=== PATIENT | female | born 1980 | race Caucasian/White ===

== ENCOUNTER 2020-12-22 23:19 | Inpatient (IN) | payer OTHER ==
[2020-12-22] MEDS ORDERED: Sodium Chloride 0.9% 1000 ML 1,000 ML IV STA (23:45)
[2020-12-22] MEDS ORDERED: Zithromax 500 MG/ 250 ML NaCl Premix 500 MG/250 ML IVPB IV STA (23:45)
--- NOTE | 2020-12-22 23:49 | ERPHSYRPT ---
- History of Present Illness Time Seen by Provider: 12/22/20 23:55 Exam Limitations: no limitations Physician History: Is a 40-year-old white female who tested positive for Covid 4 days ago she pr esents with extreme shortness of breath chest pain dyspnea on exertion and room air O2 sat of 88% she has had some nausea and vomiting and feels dehydrated as well. Timing/Duration: day(s) (4) Cough Quality/Degree: dry cough Possible Cause: no prior episodes Modifying Factors: Improves With: activity, coughing, exertion Associated Symptoms: fever, chills, chest pain/soreness, cough, dizziness - Review of Systems Constitutional: No Fever, No Chills Eyes: No Symptoms Ears, Nose, & Throat: No Symptoms Respiratory: Cough, Dyspnea Cardiac: Chest Pain, No Edema, No Syncope Abdominal/Gastrointestinal: Nausea, Vomiting, No Abdominal Pain, No Diarrhea Genitourinary Symptoms: No Dysuria Musculoskeletal: No Back Pain, No Neck Pain Skin: No Rash Neurological: No Dizziness, No Focal Weakness, No Sensory Changes Psychological: No Symptoms Endocrine: No Symptoms All Other Systems: Reviewed and Negative - Nursing Vital Signs Nursing Vital Signs: Initial Vital Signs Temperature 99.9 F 12/22/20 23:48 Pulse Rate 127 H 12/22/20 23:48 Respiratory Rate 26 H 12/22/20 23:48 Blood Pressure 153/96 12/22/20 23:48 O2 Sat by Pulse Oximetry 94 L 12/22/20 23:48 Pain Scale Pain Intensity 5 - Physical Exam General Appearance: moderate distress, alert Eye Exam: PERRL/EOMI, eyes nml inspection Ears, Nose, Throat Exam: normal ENT inspection, TMs normal, pharynx normal, moist mucous membranes Neck Exam: normal inspection, non-tender, supple, full range of motion Respiratory Exam: respiratory distress, diminished breath sounds, crackles/rales, rhonchi, wheezing Cardiovascular Exam: regular rate/rhythm, normal heart sounds Gastrointestinal/Abdomen Exam: soft, No tenderness Back Exam: normal inspection, No CVA tenderness, No vertebral tenderness Extremity Exam: normal inspection, normal range of motion Neurologic Exam: alert, oriented x 3, cooperative, normal mood/affect, sensation nml, No motor deficits Skin Exam: normal color, warm, dry, No rash Lymphatic Exam: No adenopathy - Course Nursing assessment & vital signs reviewed: Yes EKG Interpreted by Me: RATE ([id number]), Sinus Tach, NORMAL AXIS, NORMAL INTERVALS, NORMAL QRS - Radiology Exams Chest X-ray Interpretation: Interpreted by me, Other (Diffuse bilateral opacities) Ordered Tests: Active Orders 24 hr Category Date Time Status [employer] STAT Care 12/22/20 23:46 Active EKG-ER Only STAT Care 12/22/20 23:45 Active Oxygen-ED Only Nasal Cannula 2 lpm Care 12/22/20 23:45 Active Pulse Oximetry (ED) STAT Care 12/22/20 23:45 Active CHEST 1 VIEW (PORTABLE) Stat Exams 12/22/20 23:46 Taken CBC W DIFF Stat Lab 12/22/20 00:30 Completed CMP Stat Lab 12/22/20 00:30 Received D-DIMER QUANTITATIVE Stat Lab 12/22/20 00:30 Completed Lactic Acid Stat Lab 12/22/20 23:45 Completed MAGNESIUM Stat Lab 12/22/20 00:30 Received NT PRO BNP Stat Lab 12/22/20 00:30 Received PROTIME WITH INR Stat Lab 12/22/20 00:30 Completed TROPONIN Q3H Lab 12/22/20 00:30 Received TROPONIN Q3H Lab 12/23/20 02:46 Ordered TROPONIN Q3H Lab 12/23/20 05:46 Ordered TROPONIN Q3H Lab 12/23/20 08:46 Ordered TROPONIN Q3H Lab 12/23/20 11:46 Ordered UA W/RFX UR CULTURE Stat Lab 12/22/20 23:46 Ordered Medication Summary Discontinued Medications Generic Name Dose Route Start Last Admin Trade Name Freq PRN Reason Stop Dose Admin Sodium Chloride 1,000 mls @ 999 mls/hr 12/22/20 23:45 12/23/20 00:44 Sodium Chloride 0.9% 1000 Ml IV 12/23/20 00:45 999 mls/hr .Q1H1M STA Administration Azithromycin 500 mg in 250 mls @ 250 mls/hr 12/22/20 23:45 12/23/20 00:43 Zithromax 500 Mg/ 250 Ml Nacl Premix IV 12/23/20 00:44 250 ml/hr STAT STA 250 mls/hr Administration Azithromycin Confirm 12/23/20 00:39 Zithromax 500 Mg/ 250 Ml Nacl Premix Administered 12/23/20 00:40 Dose 500 mg in 250 mls @ ud IV .STK-MED ONE Sodium Chloride Confirm 12/23/20 00:39 Sodium Chloride 0.9% 1000 Ml Administered 12/23/20 00:40 Dose 1,000 mls @ ud .ROUTE .[facility] Lab/Rad Data: Laboratory Result Diagrams 12/22/20 00:30 Laboratory Results 12/23/20 12/22/20 12/22/20 Range/Units 00:20 00:30 00:30 WBC 5.2 (4.0-10.5) K/mm3 RBC 4.25 (4.1-5.4) M/mm3 Hgb 12.5 (12.0-16.0) gm/dl Hct 40.0 (35-47) % MCV 94.1 (78-100) fl MCH 29.4 (26-32) pg MCHC 31.3 L (32-36) g/dl RDW 14.0 (11.5-14.0) % Plt Count 229 (150-450) K/mm3 MPV 9.5 (7.5-11.0) fl Gran % 84.8 H (36.0-66.0) % Eos # (Auto) 0.01 (0-0.5) Absolute Lymphs (auto) 0.57 L (1.0-4.6) Absolute Monos (auto) 0.21 (0.0-1.3) Lymphocytes % 11.0 L (24.0-44.0) % Monocytes % 4.0 (0.0-12.0) % Eosinophils % 0.2 (0.00-5.0) % Basophils % 0.0 (0.0-0.4) % Absolute Granulocytes 4.40 (1.4-6.9) Basophils # 0 (0-0.4) PT 14.0 H (9.4-12.5) SECONDS INR 1.19 (0.8-3.0) D-Dimer 1094 H* (215-500) ng/mL Lactic Acid 0.9 (0.4-2.0) - Progress Progress: improved Air Movement: fair Blood Culture(s) Obtained: No Antibiotics given: Yes Discussed with : Glo - Departure Departure Disposition: In-patient Admission Clinical Impression: COVID-19 Condition: Fair Critical Care Time: No Referrals: BETSY HALL MD [Primary Care Provider] -
[2020-12-23 00:37] LABS: Basophil (Absolute #) 0 (0-0.4); Eosinophil % 0.2 % (0.00-5.0); Eosinophil (Absolute #) 0.01 (0-0.5); Hemoglobin 12.5 gm/dl (12.0-16.0); Lymphocyte (Absolute #) 0.57 (1.0-4.6); Mean Cell Volume 94.1 fl (78-100); Mean Corpuscular Hemoglobin 29.4 pg (26-32); Mean Corpuscular Hgb Concent. 31.3 g/dl (32-36); Mean Platelet Volume 9.5 fl (7.5-11.0); Monocyte (Absolute #) 0.21 (0.0-1.3); Neutrophil % 84.8 % (36.0-66.0); Platelet Count 229 K/mm3 (150-450); Red Blood Count 4.25 M/mm3 (4.1-5.4); White Blood Count 5.2 K/mm3 (4.0-10.5)
[2020-12-23] MEDS ORDERED: Zithromax 500 MG/ 250 ML NaCl Premix 500 MG/250 ML IVPB IV ONE (00:39)
[2020-12-23] MEDS ORDERED: Sodium Chloride 0.9% 1000 ML 1,000 ML ONE (00:39)
[2020-12-23 00:45] LABS: INR 1.19 (0.8-3.0)
[2020-12-23 00:58] LABS: ALBUMIN 4.1 g/dL (3.5-5.0); ALKALINE PHOSPHATASE 67 U/L (38-126); ANION GAP 15.6 MEQ/L (5-15); BLOOD UREA NITROGEN 9 mg/dL (7-17); CHLORIDE 100 mmol/L (98-107); Calcium 8.4 mg/dL (8.4-10.2); Carbon Dioxide 26 mmol/L (22-30); Creatinine 1 0.67 mg/dL (0.52-1.04); EST GLOMERULAR FILTRATION RATE > 60.0 ML/MIN; Glucose 124 mg/dL (74-106); MAGNESIUM 1.9 mg/dL (1.6-2.3); NT PRO BNP 34.3 pg/mL (0-450); SGOT/AST 77 U/L (14-36); SGPT/ALT 72 U/L (0-35); SODIUM 137 mmol/L (137-145); Total Protein 7.3 g/dL (6.3-8.2)
[2020-12-23 02:03] LABS: Appearance SLIGHTLY CLOUDY (CLEAR); Bacteria RARE /HPF (NEGATIVE); Bilirubin NEGATIVE (NEGATIVE); Blood NEGATIVE Ery/ul (0-5); Epithelial Cells RARE /HPF (FEW); Glucose NEGATIVE (NEGATIVE); Ketones SMALL (NEGATIVE); Leukocyte Esterase NEGATIVE (NEGATIVE); Mucus SLIGHT /HPF (NEGATIVE); Nitrite NEGATIVE (NEGATIVE); Protein,Urine Dip 100 (Negative); Specific Gravity 1.024 (1.005-1.025); Urobilinogen NEGATIVE mg/dL (0-1)
[2020-12-23] MEDS ORDERED: VENTOLIN COMMON CANISTER IH PRN (02:47)
[2020-12-23] MEDS: TYLENOL 325 MG PO PRN ×4 (04:21→22:45)
[2020-12-23] MEDS: Sodium Chloride 0.9% 1000 ML 1,000 ML IV SCH ×2 (04:21→14:26)
[2020-12-23 05:15] LABS: Absolute Neutrophil Ct (ANC) 4.39 (1.4-6.9); Basophil (Absolute #) 0 (0-0.4); Eosinophil (Absolute #) 0 (0-0.5); Hematocrit 40.9 % (35-47); Hemoglobin 12.5 gm/dl (12.0-16.0); Lymphocyte (Absolute #) 0.77 (1.0-4.6); Lymphocytes % 14.5 % (24.0-44.0); Mean Cell Volume 97.6 fl (78-100); Mean Corpuscular Hemoglobin 29.8 pg (26-32); Mean Corpuscular Hgb Concent. 30.6 g/dl (32-36); Mean Platelet Volume 9.8 fl (7.5-11.0); Monocyte (Absolute #) 0.16 (0.0-1.3); Neutrophil % 82.5 % (36.0-66.0); Platelet Count 203 K/mm3 (150-450); Red Blood Count 4.19 M/mm3 (4.1-5.4); Red Cell Distribution Width 14.2 % (11.5-14.0); White Blood Count 5.3 K/mm3 (4.0-10.5)
[2020-12-23] MEDS: VENTOLIN COMMON CANISTER IH SCH ×4 (07:00→19:54)
[2020-12-23 07:41] LABS: A-aADO2 256; ABG HEMOGLOBIN 11.3; ABG POTASSIUM 3.6 (3.5-5.1); ABG SITE RIGHT RADIAL; ALLEN TEST OK? YES; ARTERIAL BLD GAS O2 SATURATION 96.5 % (95-100); ARTERIAL BLOOD GAS FIO2 50 %; ARTERIAL BLOOD GAS PCO2 32 mmHg (35-45); ARTERIAL BLOOD GAS PO2 61 mmHg (75-100); ARTERIAL BLOOD GAS pH 7.45 (7.35-7.45); CARBOXYHEMOGLOBIN 1.6 % THgb (0.0-6.9); HCO3- 22.2 (22-28); HGB O2 SAT 94.1 g/dF (94-100); Methhemoglobin 0.9 % (1.4-1.5)
--- NOTE | 2020-12-23 08:12 | PCM.HP ---
History of Present Illness - Chief Complaint Chief Complaint: nausea shortness of breath, headache, Positive COVID 19 3 days ago History of Present Illness: is a 40 year old female.who tested positive for Covid 4 days ago she presents with extreme shortness of breath chest pain dyspnea on exertion and room air O2 sat of 88% she has had some nausea and vomiting and feels dehydrated as well. Timing/Duration: day(s) (4) Cough Quality/Degree: dry cough Possible Cause: no prior episodes Modifying Factors: Improves With: activity, coughing, exertion Associated Symptoms: fever, chills, chest pain/soreness, cough, dizziness - Review of Systems Constitutional: Lethargy, No Fever, No Chills Eyes: No Symptoms Ears, Nose, & Throat: No Symptoms Respiratory: Cough, Orthopnea, Short Of Breath Cardiac: No Chest Pain, No Edema, No Syncope Abdominal/Gastrointestinal: Nausea, No Abdominal Pain, No Vomiting, No Diarrhea Genitourinary Symptoms: No Dysuria Musculoskeletal: No Back Pain, No Neck Pain Skin: No Rash Neurological: No Dizziness, No Focal Weakness, No Sensory Changes Psychological: No Symptoms Endocrine: No Symptoms Hematologic/Lymphatic: No Symptoms Immunological/Allergic: No Symptoms Medications & Allergies Home Medications: Home Medication List No Reportable Medications [No Reported Medications] 12/23/20 [History Confirmed 12/23/20] Allergies/Adverse Reactions: Allergies Allergy/AdvReac Type Severity Reaction Status Date / Time No Known Drug Allergies Allergy Verified 12/23/20 02:42 - Past Medical History Past Medical History: No - Female History Are you now?: No - Past Surgical History Past Surgical History: Yes Neuro Surgical History: No Pertinent History Cardiac History: No Pertinent History Respiratory Surgery: No Pertinent History GI Surgical History: No Pertinent History Genitourinary Surgical Hx: No Pertinent History Musculskeletal Surgical Hx: No Pertinent History Female Surgical History: Section - Social History Smoking Status: Never smoker Exposure to second hand smoke: No Alcohol: None Drug Use: none - Physical Exam Vital Signs: Vital Signs - 24 hr Temp Pulse Resp BP Pulse Ox 12/23/20 07:54 98.8 F 112 H 24 141/80 90 L 12/23/20 07:35 20 12/23/20 07:06 120 H 20 94 L 12/23/20 07:00 118 H 18 89 L 12/23/20 06:08 99.2 F 12/23/20 05:30 101 F 12/23/20 05:05 100.5 F 124 H 19 96 12/23/20 04:00 99.1 F 128 H 20 100 12/23/20 02:46 99.1 F 120 H 20 132/78 90 L 12/23/20 02:36 119 H 25 H 90 L 12/23/20 01:58 122 H 20 127/84 93 L 12/23/20 01:11 122 H 18 132/87 93 L 12/23/20 00:19 121 H 22 93 L 12/22/20 23:59 94 L 12/22/20 23:48 99.9 F 127 H 26 H 153/96 94 L General Appearance: no apparent distress, alert Neurologic Exam: alert, oriented x 3, cooperative, normal mood/affect, nml cerebellar function, nml station & gait, sensation nml, No motor deficits Eye Exam: PERRL/EOMI, eyes nml inspection Ears, Nose, Throat Exam: normal ENT inspection, TMs normal, pharynx normal, moist mucous membranes Neck Exam: normal inspection, non-tender, supple, full range of motion Respiratory Exam: respiratory distress, diminished breath sounds Cardiovascular Exam: regular rate/rhythm, normal heart sounds, normal peripheral pulses Gastrointestinal/Abdomen Exam: soft, normal bowel sounds, No tenderness, No mass Back Exam: normal inspection, normal range of motion, No CVA tenderness, No vertebral tenderness Extremity Exam: normal inspection, normal range of motion, pelvis stable Skin Exam: normal color, warm, dry, No rash Lymphatic Exam: No adenopathy Results - Labs Lab/Micro Results: Lab Results-Last 24 Hours 12/22/20 12/22/20 12/22/20 Range/Units 00:30 00:30 00:30 WBC 5.2 (4.0-10.5) K/mm3 RBC 4.25 (4.1-5.4) M/mm3 Hgb 12.5 (12.0-16.0) gm/dl Hct 40.0 (35-47) % MCV 94.1 (78-100) fl MCH 29.4 (26-32) pg MCHC 31.3 L (32-36) g/dl RDW 14.0 (11.5-14.0) % Plt Count 229 (150-450) K/mm3 MPV 9.5 (7.5-11.0) fl Gran % 84.8 H (36.0-66.0) % Eos # (Auto) 0.01 (0-0.5) Absolute Lymphs (auto) 0.57 L (1.0-4.6) Absolute Monos (auto) 0.21 (0.0-1.3) Lymphocytes % 11.0 L (24.0-44.0) % Monocytes % 4.0 (0.0-12.0) % Eosinophils % 0.2 (0.00-5.0) % Basophils % 0.0 (0.0-0.4) % Absolute Granulocytes 4.40 (1.4-6.9) Basophils # 0 (0-0.4) PT 14.0 H (9.4-12.5) SECONDS INR 1.19 (0.8-3.0) D-Dimer 1094 H* (215-500) ng/mL Puncture Site pCO2 (35-45) mmHg pO2 (75-100) mmHg Base Excess (-2.0-2.0) O2 Saturation (94-100) g/dF ABG pH (7.35-7.45) ABG HCO3 (22-28) ABG O2 Sat (Measured) (95-100) % Renan Test A-a Gradient a/A Ratio Hemoglobin Carboxyhemoglobin (0.0-6.9) % THgb Methemoglobin (1.4-1.5) % Temperature C POC O2 Flow Rate % Sodium 137 (137-145) mmol/L Potassium 4.0 (3.5-5.1) mmol/L Chloride 100 (98-107) mmol/L Carbon Dioxide 26 (22-30) mmol/L Anion Gap 15.6 H (5-15) MEQ/L BUN 9 (7-17) mg/dL Creatinine 0.67 (0.52-1.04) mg/dL Estimated GFR > 60.0 ML/MIN Glucose 124 H (74-106) mg/dL Lactic Acid (0.4-2.0) Calcium 8.4 (8.4-10.2) mg/dL Magnesium 1.9 (1.6-2.3) mg/dL Total Bilirubin 0.50 (0.2-1.3) mg/dL AST 77 H (14-36) U/L ALT 72 H (0-35) U/L Alkaline Phosphatase 67 (38-126) U/L Troponin I (0.000-0.034) ng/mL NT-Pro-B Natriuret Pep 34.3 (0-450) pg/mL Serum Total Protein 7.3 (6.3-8.2) g/dL Albumin 4.1 (3.5-5.0) g/dL Urine Color (YELLOW) Urine Appearance (CLEAR) Urine pH (5-6) Ur Specific [place] (1.005-1.025) Urine Protein (Negative) Urine Ketones (NEGATIVE) Urine Blood (0-5) Rick/ul Urine Nitrite (NEGATIVE) Urine Bilirubin (NEGATIVE) Urine Urobilinogen (0-1) mg/dL Ur Leukocyte Esterase (NEGATIVE) Urine WBC (Auto) (0-5) /HPF Urine RBC (Auto) (0-2) /HPF U Epithel Cells (Auto) (FEW) /HPF Urine Bacteria (Auto) (NEGATIVE) /HPF Urine Mucus (Auto) (NEGATIVE) /HPF Urine Culture Reflexed (NO) Urine Glucose (NEGATIVE) mg/dL 12/22/20 12/23/20 12/23/20 Range/Units 00:30 00:20 01:25 WBC (4.0-10.5) K/mm3 RBC (4.1-5.4) M/mm3 Hgb (12.0-16.0) gm/dl Hct (35-47) % MCV (78-100) fl MCH (26-32) pg MCHC (32-36) g/dl RDW (11.5-14.0) % Plt Count (150-450) K/mm3 MPV (7.5-11.0) fl Gran % (36.0-66.0) % Eos # (Auto) (0-0.5) Absolute Lymphs (auto) (1.0-4.6) Absolute Monos (auto) (0.0-1.3) Lymphocytes % (24.0-44.0) % Monocytes % (0.0-12.0) % Eosinophils % (0.00-5.0) % Basophils % (0.0-0.4) % Absolute Granulocytes (1.4-6.9) Basophils # (0-0.4) PT (9.4-12.5) SECONDS INR (0.8-3.0) D-Dimer (215-500) ng/mL Puncture Site pCO2 (35-45) mmHg pO2 (75-100) mmHg Base Excess (-2.0-2.0) O2 Saturation (94-100) g/dF ABG pH (7.35-7.45) ABG HCO3 (22-28) ABG O2 Sat (Measured) (95-100) % Renan Test A-a Gradient a/A Ratio Hemoglobin Carboxyhemoglobin (0.0-6.9) % THgb Methemoglobin (1.4-1.5) % Temperature C POC O2 Flow Rate % Sodium (137-145) mmol/L Potassium (3.5-5.1) mmol/L Chloride (98-107) mmol/L Carbon Dioxide (22-30) mmol/L Anion Gap (5-15) MEQ/L BUN (7-17) mg/dL Creatinine (0.52-1.04) mg/dL Estimated GFR ML/MIN Glucose (74-106) mg/dL Lactic Acid 0.9 (0.4-2.0) Calcium (8.4-10.2) mg/dL Magnesium (1.6-2.3) mg/dL Total Bilirubin (0.2-1.3) mg/dL AST (14-36) U/L ALT (0-35) U/L Alkaline Phosphatase (38-126) U/L Troponin I < 0.012 (0.000-0.034) ng/mL NT-Pro-B Natriuret Pep (0-450) pg/mL Serum Total Protein (6.3-8.2) g/dL Albumin (3.5-5.0) g/dL Urine Color LINA (YELLOW) Urine Appearance SLIGHTLY CLOUDY (CLEAR) Urine pH 5.0 (5-6) Ur Specific [place] 1.024 (1.005-1.025) Urine Protein 100 (Negative) Urine Ketones SMALL (NEGATIVE) Urine Blood NEGATIVE (0-5) Rick/ul Urine Nitrite NEGATIVE (NEGATIVE) Urine Bilirubin NEGATIVE (NEGATIVE) Urine Urobilinogen NEGATIVE (0-1) mg/dL Ur Leukocyte Esterase NEGATIVE (NEGATIVE) Urine WBC (Auto) 6-10 (0-5) /HPF Urine RBC (Auto) 6-10 (0-2) /HPF U Epithel Cells (Auto) RARE (FEW) /HPF Urine Bacteria (Auto) RARE (NEGATIVE) /HPF Urine Mucus (Auto) SLIGHT (NEGATIVE) /HPF Urine Culture Reflexed NO (NO) Urine Glucose NEGATIVE (NEGATIVE) mg/dL 12/23/20 12/23/20 12/23/20 Range/Units 04:42 04:55 07:30 WBC 5.3 (4.0-10.5) K/mm3 RBC 4.19 (4.1-5.4) M/mm3 Hgb 12.5 (12.0-16.0) gm/dl Hct 40.9 (35-47) % MCV 97.6 (78-100) fl MCH 29.8 (26-32) pg MCHC 30.6 L (32-36) g/dl RDW 14.2 H (11.5-14.0) % Plt Count 203 (150-450) K/mm3 MPV 9.8 (7.5-11.0) fl Gran % 82.5 H (36.0-66.0) % Eos # (Auto) 0 (0-0.5) Absolute Lymphs (auto) 0.77 L (1.0-4.6) Absolute Monos (auto) 0.16 (0.0-1.3) Lymphocytes % 14.5 L (24.0-44.0) % Monocytes % 3.0 (0.0-12.0) % Eosinophils % 0.0 (0.00-5.0) % Basophils % 0.0 (0.0-0.4) % Absolute Granulocytes 4.39 (1.4-6.9) Basophils # 0 (0-0.4) PT (9.4-12.5) SECONDS INR (0.8-3.0) D-Dimer (215-500) ng/mL Puncture Site RIGHT RADIAL pCO2 32 L (35-45) mmHg pO2 61 L (75-100) mmHg Base Excess -1.0 (-2.0-2.0) O2 Saturation 94.1 (94-100) g/dF ABG pH 7.45 (7.35-7.45) ABG HCO3 22.2 (22-28) ABG O2 Sat (Measured) 96.5 (95-100) % Renan Test YES A-a Gradient 256 a/A Ratio 0.19 Hemoglobin 11.3 Carboxyhemoglobin 1.6 (0.0-6.9) % THgb Methemoglobin 0.9 L (1.4-1.5) % Temperature 37.0 C POC O2 Flow Rate 50 % Sodium (137-145) mmol/L Potassium 3.6 (3.5-5.1) mmol/L Chloride (98-107) mmol/L Carbon Dioxide (22-30) mmol/L Anion Gap (5-15) MEQ/L BUN (7-17) mg/dL Creatinine (0.52-1.04) mg/dL Estimated GFR ML/MIN Glucose (74-106) mg/dL Lactic Acid 1.3 (0.4-2.0) Calcium (8.4-10.2) mg/dL Magnesium (1.6-2.3) mg/dL Total Bilirubin (0.2-1.3) mg/dL AST (14-36) U/L ALT (0-35) U/L Alkaline Phosphatase (38-126) U/L Troponin I (0.000-0.034) ng/mL NT-Pro-B Natriuret Pep (0-450) pg/mL Serum Total Protein (6.3-8.2) g/dL Albumin (3.5-5.0) g/dL Urine Color (YELLOW) Urine Appearance (CLEAR) Urine pH (5-6) Ur Specific [place] (1.005-1.025) Urine Protein (Negative) Urine Ketones (NEGATIVE) Urine Blood (0-5) Rick/ul Urine Nitrite (NEGATIVE) Urine Bilirubin (NEGATIVE) Urine Urobilinogen (0-1) mg/dL Ur Leukocyte Esterase (NEGATIVE) Urine WBC (Auto) (0-5) /HPF Urine RBC (Auto) (0-2) /HPF U Epithel Cells (Auto) (FEW) /HPF Urine Bacteria (Auto) (NEGATIVE) /HPF Urine Mucus (Auto) (NEGATIVE) /HPF Urine Culture Reflexed (NO) Urine Glucose (NEGATIVE) mg/dL - Radiology Impressions Radiology Exams & Impressions: Radiology Procedures Category Date Time Status CHEST 1 VIEW (PORTABLE) Stat Exams 12/22/20 23:46 Taken CHEST 2 VIEWS (PA AND LAT) DAILY Exams 12/23/20 08:15 Ordered - Other Procedures and Tests Respiratory Therapy 12/23/20 02:46 Oxygen Nasal Cannula 3 lpm Respiratory Therapy Assessment DAILY 12/23/20 08:00 Respiratory Therapy Consult ROUTINE Assessment/Plan (1) Pneumonia due to COVID-19 virus Current Visit: Yes Status: Acute Assessment & Plan: Chief Complaint Diagnosis COVID Allergies Allergy/AdvReac Type Severity Reaction Status Date / Time No Known Drug Allergies Allergy Verified 12/23/20 02:42 Vital Signs (Last 24 hours) Temp Pulse Resp BP Pulse Ox 12/23/20 07:54 98.8 F 112 H 24 141/80 90 L 12/23/20 07:35 20 12/23/20 07:06 120 H 20 94 L 12/23/20 07:00 118 H 18 89 L 12/23/20 06:08 99.2 F 12/23/20 05:30 101 F 12/23/20 05:05 100.5 F 124 H 19 96 12/23/20 04:00 99.1 F 128 H 20 100 12/23/20 02:46 99.1 F 120 H 20 132/78 90 L 12/23/20 02:36 119 H 25 H 90 L 12/23/20 01:58 122 H 20 127/84 93 L 12/23/20 01:11 122 H 18 132/87 93 L 12/23/20 00:19 121 H 22 93 L 12/22/20 23:59 94 L 12/22/20 23:48 99.9 F 127 H 26 H 153/96 94 L Home Medications Medication Instructions Recorded Confirmed Last Taken Type No Reportable Medications [No 12/23/20 12/23/20 Unknown History Reported Medications] Current Medications Generic Name Dose Route Start Last Admin Trade Name Freq PRN Reason Stop Dose Admin Acetaminophen 650 mg 12/23/20 04:16 12/23/20 04:21 Tylenol 325 Mg PO 01/22/21 04:15 650 mg Q4H PRN PRN Administration PAIN AND/OR FEVER Albuterol Sulfate 4 puff 12/23/20 07:00 12/23/20 07:00 Ventolin Common Canister IH 01/22/21 06:59 4 puff QIDRT ZAK Administration Albuterol Sulfate 4 puff 12/23/20 02:47 12/23/20 02:36 Ventolin Common Canister IH 01/22/21 02:46 4 puff Q4H PRN PRN Administration SHORTNESS OF BREATH/WHEEZING Enoxaparin Sodium 40 mg 12/23/20 10:00 Enoxaparin Sodium SQ 01/22/21 09:59 DAILY ZAK Famotidine 20 mg 12/23/20 10:00 Pepcid 20 Mg Vial IV 01/22/21 09:59 Q12HT ZAK Azithromycin 500 mg in 250 mls @ 250 mls/hr 12/23/20 22:00 Zithromax 500 Mg/ 250 Ml Nacl Premix IV 01/22/21 21:59 QPM ZAK Sodium Chloride 1,000 mls @ 150 mls/hr 12/23/20 04:30 12/23/20 04:21 Sodium Chloride 0.9% 1000 Ml IV 01/22/21 04:29 150 mls/hr .Q6H40M ZAK Administration Ceftriaxone Sodium/Dextrose 1 g in 50 mls @ 100 mls/hr 12/23/20 10:00 Rocephin 1 Gm-D5w 50 Ml Bag IV 12/26/20 09:59 Q24H10 ZAK Remdesivir 100 mg/ Sodium 100 mls @ 100 mls/hr 12/24/20 08:07 Chloride IV 12/27/20 09:06 Q24H ZAK Methylprednisolone Sodium Succinate 40 mg 12/23/20 08:00 Solu-Medrol 40 Mg IV 01/22/21 07:59 Q8H ZAK Ondansetron HCl 4 mg 12/23/20 01:08 Zofran 4 Mg/2 Ml Vial IV 01/22/21 01:07 Q6H PRN PRN NAUSEA/VOMITING Discontinued Medications Generic Name Dose Route Start Last Admin Trade Name Freq PRN Reason Stop Dose Admin Sodium Chloride 1,000 mls @ 999 mls/hr 12/22/20 23:45 12/23/20 00:44 Sodium Chloride 0.9% 1000 Ml IV 12/23/20 00:45 999 mls/hr .Q1H1M STA Administration Azithromycin 500 mg in 250 mls @ 250 mls/hr 12/22/20 23:45 12/23/20 00:43 Zithromax 500 Mg/ 250 Ml Nacl Premix IV 12/23/20 00:44 250 ml/hr STAT STA 250 mls/hr Administration Azithromycin Confirm 12/23/20 00:39 Zithromax 500 Mg/ 250 Ml Nacl Premix Administered 12/23/20 00:40 Dose 500 mg in 250 mls @ ud IV .STK-MED ONE Sodium Chloride Confirm 12/23/20 00:39 Sodium Chloride 0.9% 1000 Ml Administered 12/23/20 00:40 Dose 1,000 mls @ ud .ROUTE .STK-MED ONE Intake & Output (Last 24 hours) 12/20/20 12/21/20 12/22/20 12/23/20 11:59 11:59 11:59 11:59 Output Total 400 Balance -400 Weight 96.1 kg Microbiology Results (Last 24 hours) 12/22/20 23:45 Blood Blood Culture Gram Stain - Pending 12/22/20 23:45 Blood Blood Culture - Pending 12/22/20 23:45 Blood Blood Culture Gram Stain - Pending 12/22/20 23:45 Blood Blood Culture - Pending Laboratory Results (Last 24 hours) 12/23/20 12/23/20 12/23/20 07:30 04:55 04:42 WBC 5.3 RBC 4.19 Hgb 12.5 Hct 40.9 MCV 97.6 MCH 29.8 MCHC 30.6 L RDW 14.2 H Plt Count 203 MPV 9.8 Gran % 82.5 H Eos # (Auto) 0 Absolute Lymphs (auto) 0.77 L Absolute Monos (auto) 0.16 Lymphocytes % 14.5 L Monocytes % 3.0 Eosinophils % 0.0 Basophils % 0.0 Absolute Granulocytes 4.39 Basophils # 0 PT INR D-Dimer Puncture Site RIGHT RADIAL pCO2 32 L pO2 61 L Base Excess -1.0 O2 Saturation 94.1 ABG pH 7.45 ABG HCO3 22.2 ABG O2 Sat (Measured) 96.5 Renan Test YES A-a Gradient 256 a/A Ratio 0.19 Hemoglobin 11.3 Carboxyhemoglobin 1.6 Methemoglobin 0.9 L Temperature 37.0 POC O2 Flow Rate 50 Sodium Potassium 3.6 Chloride Carbon Dioxide Anion Gap BUN Creatinine Estimated GFR Glucose Lactic Acid 1.3 Calcium Magnesium Total Bilirubin AST ALT Alkaline Phosphatase Troponin I NT-Pro-B Natriuret Pep Serum Total Protein Albumin Urine Color Urine Appearance Urine pH Ur Specific [place] Urine Protein Urine Ketones Urine Blood Urine Nitrite Urine Bilirubin Urine Urobilinogen Ur Leukocyte Esterase Urine WBC (Auto) Urine RBC (Auto) U Epithel Cells (Auto) Urine Bacteria (Auto) Urine Mucus (Auto) Urine Culture Reflexed Urine Glucose 12/23/20 12/23/20 12/22/20 01:25 00:20 00:30 WBC RBC Hgb Hct MCV MCH MCHC RDW Plt Count MPV Gran % Eos # (Auto) Absolute Lymphs (auto) Absolute Monos (auto) Lymphocytes % Monocytes % Eosinophils % Basophils % Absolute Granulocytes Basophils # PT INR D-Dimer Puncture Site pCO2 pO2 Base Excess O2 Saturation ABG pH ABG HCO3 ABG O2 Sat (Measured) Renan Test A-a Gradient a/A Ratio Hemoglobin Carboxyhemoglobin Methemoglobin Temperature POC O2 Flow Rate Sodium Potassium Chloride Carbon Dioxide Anion Gap BUN Creatinine Estimated GFR Glucose Lactic Acid 0.9 Calcium Magnesium Total Bilirubin AST ALT Alkaline Phosphatase Troponin I < 0.012 NT-Pro-B Natriuret Pep Serum Total Protein Albumin Urine Color LINA Urine Appearance SLIGHTLY CLOUDY Urine pH 5.0 Ur Specific [place] 1.024 Urine Protein 100 Urine Ketones SMALL Urine Blood NEGATIVE Urine Nitrite NEGATIVE Urine Bilirubin NEGATIVE Urine Urobilinogen NEGATIVE Ur Leukocyte Esterase NEGATIVE Urine WBC (Auto) 6-10 Urine RBC (Auto) 6-10 U Epithel Cells (Auto) RARE Urine Bacteria (Auto) RARE Urine Mucus (Auto) SLIGHT Urine Culture Reflexed NO Urine Glucose NEGATIVE 12/22/20 12/22/20 12/22/20 00:30 00:30 00:30 WBC 5.2 RBC 4.25 Hgb 12.5 Hct 40.0 MCV 94.1 MCH 29.4 MCHC 31.3 L RDW 14.0 Plt Count 229 MPV 9.5 Gran % 84.8 H Eos # (Auto) 0.01 Absolute Lymphs (auto) 0.57 L Absolute Monos (auto) 0.21 Lymphocytes % 11.0 L Monocytes % 4.0 Eosinophils % 0.2 Basophils % 0.0 Absolute Granulocytes 4.40 Basophils # 0 PT 14.0 H INR 1.19 D-Dimer 1094 H* Puncture Site pCO2 pO2 Base Excess O2 Saturation ABG pH ABG HCO3 ABG O2 Sat (Measured) Renan Test A-a Gradient a/A Ratio Hemoglobin Carboxyhemoglobin Methemoglobin Temperature POC O2 Flow Rate Sodium 137 Potassium 4.0 Chloride 100 Carbon Dioxide 26 Anion Gap 15.6 H BUN 9 Creatinine 0.67 Estimated GFR > 60.0 Glucose 124 H Lactic Acid Calcium 8.4 Magnesium 1.9 Total Bilirubin 0.50 AST 77 H ALT 72 H Alkaline Phosphatase 67 Troponin I NT-Pro-B Natriuret Pep 34.3 Serum Total Protein 7.3 Albumin 4.1 Urine Color Urine Appearance Urine pH Ur Specific [place] Urine Protein Urine Ketones Urine Blood Urine Nitrite Urine Bilirubin Urine Urobilinogen Ur Leukocyte Esterase Urine WBC (Auto) Urine RBC (Auto) U Epithel Cells (Auto) Urine Bacteria (Auto) Urine Mucus (Auto) Urine Culture Reflexed Urine Glucose Orders (Last 24 hours) Category Date Time Status Bedrest ROUTINE Activity 12/23/20 01:10 Active Admit as Inpatient ROUTINE Care 12/23/20 01:08 Active Interdisciplinary Professor STAT Care 12/22/20 23:46 Completed EKG-ER Only STAT Care 12/22/20 23:45 Completed Elevate HOB ROUTINE Care 12/23/20 01:08 Active IV Care Q6H Care 12/23/20 01:09 Active IV Care Q6H Care 12/23/20 08:00 Ordered Intake and Output Q12H Care 12/23/20 01:08 Active Isolation, Initiate & Maintain Q6H Care 12/23/20 01:08 Active Isolation, Initiate & Maintain Q6H Care 12/23/20 08:00 Ordered Oxygen-ED Only Nasal Cannula 2 lpm Care 12/22/20 23:45 Completed Pulse Oximetry (ED) STAT Care 12/22/20 23:45 Completed Sequential Compression Device Q6H Care 12/23/20 01:08 Active Telemetry q4h Care 12/23/20 01:08 Active Vital Signs Q1H Care 12/23/20 01:08 Active Weight,Daily 0600 Care 12/23/20 01:08 Active Clear Liquid Diet 12/23/20 Lunch Active CHEST 1 VIEW (PORTABLE) Routine Exams 12/23/20 08:15 Ordered CHEST 1 VIEW (PORTABLE) Stat Exams 12/22/20 23:46 Taken ABG [ARTERIAL BLOOD GASES] Stat Lab 12/23/20 07:30 Completed BLOOD CULTURE Stat Lab 12/22/20 23:45 Received BLOOD CULTURE Stat Lab 12/22/20 23:45 Received CBC W DIFF AM.LAB Lab 12/23/20 04:42 Completed CBC W DIFF Routine Lab 12/23/20 08:00 Ordered CMP Routine Lab 08/12/21 08:00 Ordered Lactic Acid AM.LAB Lab 12/23/20 04:55 Completed Lactic Acid Stat Lab 12/22/20 23:45 Completed PROCALCITONIN DAILY Lab 12/23/20 08:15 Ordered UA W/RFX UR CULTURE Stat Lab 12/23/20 01:25 Completed Acetaminophen 325 mg [Tylenol 325 mg] Med 12/23/20 04:16 Active 650 mg PO Q4H PRN PRN Albuterol Common Canister [Ventolin Common Canister* Med 12/23/20 02:47 Active ] 4 puff IH Q4H PRN PRN Albuterol Common Canister [Ventolin Common Canister* Med 12/23/20 07:00 Active ] 4 puff IH QIDRT Azithromycin 500 mg/250 ml [Zithromax 500 MG/ 250 ML Med 12/23/20 22:00 Active NaCl Premix] 500 mg in 250 ml IV QPM Azithromycin 500 mg/250 ml [Zithromax 500 MG/ 250 ML Med 12/22/20 23:45 Discontinued NaCl Premix] 500 mg in 250 ml IV STAT Azithromycin 500 mg/250 ml [Zithromax 500 MG/ 250 ML Med 12/23/20 00:39 Discontinued NaCl Premix] 500 mg in 250 ml IV UD Enoxaparin Sodium [Enoxaparin Sodium] Med 12/23/20 10:00 Ordered 40 mg SQ DAILY Famotidine 20 mg Vial [Pepcid 20 MG VIAL] Med 12/23/20 10:00 Active 20 mg IV Q12HT Methylprednisolone Sod Suc 40M [solu-MEDROL 40 MG] Med 12/23/20 08:00 Ordered 40 mg IV Q8H NaCl 0.9% 1000 ml [Sodium Chloride 0.9% 1000 ML] 1,000 Med 12/23/20 00:39 Discontinued ml .ROUTE UD NaCl 0.9% 1000 ml [Sodium Chloride 0.9% 1000 ML] 1,000 Med 12/23/20 04:30 Active ml IV 150 mls/hr NaCl 0.9% 1000 ml [Sodium Chloride 0.9% 1000 ML] 1,000 Med 12/22/20 23:45 Discontinued ml IV 999 mls/hr Ondansetron HCl 4 mg/2 ml [Zofran 4 MG/2 ML VIAL] Med 12/23/20 01:08 Active 4 mg IV Q6H PRN PRN Remdesivir 100 mg/100 ml NaCl Q24h X 4D Med 12/24/20 08:07 Ordered Remdesivir 100 mg NaCl 0.9% 100Ml [Sodium Chloride 0.9% 100 ML BAG] 100 ml IV Q24H Rocephin 1 gm IVPB Q24H Med 12/23/20 10:00 Ordered Ceftriaxone 1 GM/50 ML PREMIX* [ROCEPHIN 1 Gm-D5w 50 ml Bag] 1 g in 50 ml IV Q24H10 Oxygen Nasal Cannula 3 lpm RT 12/23/20 02:46 Active Pulse Oximetry .continuos RT 12/23/20 02:46 Active Respiratory Therapy Assessment DAILY RT 12/23/20 02:46 Active Respiratory Therapy Consult ROUTINE RT 12/23/20 01:08 Completed Respiratory Therapy Consult ROUTINE RT 12/23/20 08:00 Ordered Transfer Order Routine Transfer 12/23/20 Completed Patient Care Notes (Last 24 hours) 12/23/20 08:02 Nursing Note by Linda Dewitt dr. updated on pt's abgs and increase to high flow @ 15L and 80%. he is putting in orders for remdesivir , steroids and lovenox from home and [employer] contacted window tinter-ADRIANNE Bermudez. Initialized on 12/23/20 08:02 - END OF NOTE 12/23/20 04:14 SBAR Note by Gissell Du SITUATION I am calling about LUKE DUARTE the patient's code status is Full Code The problem I am calling about is: pt's having neck pain and headache ASSESSMENT Pt is having neck pain and headache rating at 7/10, states takes Tylenol at home to help, pt also has been having decreased intake so asked about IVF RECOMMENDATION Physician notified at [id number] New Orders received: Tylenol 650 Q4 PRN, and NS @ 150 mL/hr Vital Signs (Last 4 hours) Temp Pulse Resp BP Pulse Ox 12/23/20 04:00 99.1 F 128 H 20 100 12/23/20 02:46 99.1 F 120 H 20 132/78 90 L 12/23/20 02:36 119 H 25 H 90 L 12/23/20 01:58 122 H 20 127/84 93 L 12/23/20 01:11 122 H 18 132/87 93 L 12/23/20 00:19 121 H 22 93 L Diagnois, Code Status Date of Arrival on Unit 12/23/20 Admitted From Emergency Dept Diagnosis COVID Resucitation Status Full Code Intake and Output 12 Hours 12/22/20 12/23/20 18:59 06:59 Weight 96.1 kg Physical Assessment Mental Status Alert Patient Orientation Person,Place,Time Coma Scale Total 15 Breath Sounds [Anterior] Crackles,Wheezes Breath Sounds [Anterior/ Crackles,Wheezes Posterior Bilateral Throughout ] Cardiac Rhythm-S[facility] Sinus Tachycardia Bowel Sounds [All Quadrants] Present,Active Abdomen Description Soft,Non-Tender Urine Appearance Not Voided Skin Color Flushed Skin Temperature Warm Pain Scale (Last 12 Hours) Pain Intensity 7 Pain Intensity 5 Pain Intensity 5 Pain Intensity 5 Pain Intensity 5 Pain Intensity 5 Pain Intensity 5 Pain Intensity 5 Pain Intensity 5 Diet Order (Last 12 Hours) 12/23/20 Breakfast House Regular Diet Lab Results (Last 12 Hours) 12/23/20 12/23/20 12/22/20 Range/Units 01:25 00:20 00:30 WBC (4.0-10.5) K/mm3 RBC (4.1-5.4) M/mm3 Hgb (12.0-16.0) gm/dl Hct (35-47) % MCV (78-100) fl MCH (26-32) pg MCHC (32-36) g/dl RDW (11.5-14.0) % Plt Count (150-450) K/mm3 MPV (7.5-11.0) fl Gran % (36.0-66.0) % Eos # (Auto) (0-0.5) Absolute Lymphs (auto) (1.0-4.6) Absolute Monos (auto) (0.0-1.3) Lymphocytes % (24.0-44.0) % Monocytes % (0.0-12.0) % Eosinophils % (0.00-5.0) % Basophils % (0.0-0.4) % Absolute Granulocytes (1.4-6.9) Basophils # (0-0.4) PT (9.4-12.5) SECONDS INR (0.8-3.0) D-Dimer (215-500) ng/mL Sodium (137-145) mmol/L Potassium (3.5-5.1) mmol/L Chloride (98-107) mmol/L Carbon Dioxide (22-30) mmol/L Anion Gap (5-15) MEQ/L BUN (7-17) mg/dL Creatinine (0.52-1.04) mg/dL Estimated GFR ML/MIN Glucose (74-106) mg/dL Lactic Acid 0.9 (0.4-2.0) Calcium (8.4-10.2) mg/dL Magnesium (1.6-2.3) mg/dL Total Bilirubin (0.2-1.3) mg/dL AST (14-36) U/L ALT (0-35) U/L Alkaline Phosphatase (38-126) U/L Troponin I < 0.012 (0.000-0.034) ng/mL NT-Pro-B Natriuret Pep (0-450) pg/mL Serum Total Protein (6.3-8.2) g/dL Albumin (3.5-5.0) g/dL Urine Color LINA (YELLOW) Urine Appearance SLIGHTLY CLOUDY (CLEAR) Urine pH 5.0 (5-6) Ur Specific [place] 1.024 (1.005-1.025) Urine Protein 100 (Negative) Urine Ketones SMALL (NEGATIVE) Urine Blood NEGATIVE (0-5) Rick/ul Urine Nitrite NEGATIVE (NEGATIVE) Urine Bilirubin NEGATIVE (NEGATIVE) Urine Urobilinogen NEGATIVE (0-1) mg/dL Ur Leukocyte Esterase NEGATIVE (NEGATIVE) Urine WBC (Auto) 6-10 (0-5) /HPF Urine RBC (Auto) 6-10 (0-2) /HPF U Epithel Cells (Auto) RARE (FEW) /HPF Urine Bacteria (Auto) RARE (NEGATIVE) /HPF Urine Mucus (Auto) SLIGHT (NEGATIVE) /HPF Urine Culture Reflexed NO (NO) Urine Glucose NEGATIVE (NEGATIVE) mg/dL 12/22/20 12/22/20 12/22/20 Range/Units 00:30 00:30 00:30 WBC 5.2 (4.0-10.5) K/mm3 RBC 4.25 (4.1-5.4) M/mm3 Hgb 12.5 (12.0-16.0) gm/dl Hct 40.0 (35-47) % MCV 94.1 (78-100) fl MCH 29.4 (26-32) pg MCHC 31.3 L (32-36) g/dl RDW 14.0 (11.5-14.0) % Plt Count 229 (150-450) K/mm3 MPV 9.5 (7.5-11.0) fl Gran % 84.8 H (36.0-66.0) % Eos # (Auto) 0.01 (0-0.5) Absolute Lymphs (auto) 0.57 L (1.0-4.6) Absolute Monos (auto) 0.21 (0.0-1.3) Lymphocytes % 11.0 L (24.0-44.0) % Monocytes % 4.0 (0.0-12.0) % Eosinophils % 0.2 (0.00-5.0) % Basophils % 0.0 (0.0-0.4) % Absolute Granulocytes 4.40 (1.4-6.9) Basophils # 0 (0-0.4) PT 14.0 H (9.4-12.5) SECONDS INR 1.19 (0.8-3.0) D-Dimer 1094 H* (215-500) ng/mL Sodium 137 (137-145) mmol/L Potassium 4.0 (3.5-5.1) mmol/L Chloride 100 (98-107) mmol/L Carbon Dioxide 26 (22-30) mmol/L Anion Gap 15.6 H (5-15) MEQ/L BUN 9 (7-17) mg/dL Creatinine 0.67 (0.52-1.04) mg/dL Estimated GFR > 60.0 ML/MIN Glucose 124 H (74-106) mg/dL Lactic Acid (0.4-2.0) Calcium 8.4 (8.4-10.2) mg/dL Magnesium 1.9 (1.6-2.3) mg/dL Total Bilirubin 0.50 (0.2-1.3) mg/dL AST 77 H (14-36) U/L ALT 72 H (0-35) U/L Alkaline Phosphatase 67 (38-126) U/L Troponin I (0.000-0.034) ng/mL NT-Pro-B Natriuret Pep 34.3 (0-450) pg/mL Serum Total Protein 7.3 (6.3-8.2) g/dL Albumin 4.1 (3.5-5.0) g/dL Urine Color (YELLOW) Urine Appearance (CLEAR) Urine pH (5-6) Ur Specific [place] (1.005-1.025) Urine Protein (Negative) Urine Ketones (NEGATIVE) Urine Blood (0-5) Rick/ul Urine Nitrite (NEGATIVE) Urine Bilirubin (NEGATIVE) Urine Urobilinogen (0-1) mg/dL Ur Leukocyte Esterase (NEGATIVE) Urine WBC (Auto) (0-5) /HPF Urine RBC (Auto) (0-2) /HPF U Epithel Cells (Auto) (FEW) /HPF Urine Bacteria (Auto) (NEGATIVE) /HPF Urine Mucus (Auto) (NEGATIVE) /HPF Urine Culture Reflexed (NO) Urine Glucose (NEGATIVE) mg/dL Lactic Acid (Last 12 Hours) 12/23/20 00:20 Lactic Acid 0.9 Microbiology Results (Last 12 Hours) 12/22/20 23:45 Blood Culture Gram Stain - Pending Blood Blood Culture - Pending 12/22/20 23:45 Blood Culture Gram Stain - Pending Blood Blood Culture - Pending Orders (Last 12 Hours) Category Date Time Status Bedrest ROUTINE Activity 12/23/20 01:10 Active Admit as Inpatient ROUTINE Care 12/23/20 01:08 Active Elevate HOB ROUTINE Care 12/23/20 01:08 Active IV Care Q6H Care 12/23/20 01:09 Active Intake and Output Q12H Care 12/23/20 01:08 Active Isolation, Initiate & Maintain Q6H Care 12/23/20 01:08 Active POCT Glucose Check ACHS Care 12/23/20 01:08 Active Sequential Compression Device Q6H Care 12/23/20 01:08 Active Telemetry q4h Care 12/23/20 01:08 Active Vital Signs Q4H Care 12/23/20 01:08 Active Weight,Daily 0600 Care 12/23/20 01:08 Active House Regular Diet Diet 12/23/20 Breakfast Active CHEST 1 VIEW (PORTABLE) Stat Exams 12/22/20 23:46 Taken BLOOD CULTURE Stat Lab 12/22/20 23:45 Received BLOOD CULTURE Stat Lab 12/22/20 23:45 Received CBC W DIFF AM.LAB Lab 12/23/20 04:00 Ordered Lactic Acid AM.LAB Lab 12/23/20 04:00 Ordered Albuterol Common Canister [Ventolin Common Canister* Med 12/23/20 02:47 Ordered ] 4 puff IH Q4H PRN PRN Albuterol Common Canister [Ventolin Common Canister* Med 12/23/20 07:00 Ordered ] 4 puff IH QIDRT Azithromycin 500 mg/250 ml [Zithromax 500 MG/ 250 ML Med 12/23/20 10:00 Ordered NaCl Premix] 500 mg in 250 ml IV Q24H10 Famotidine 20 mg Vial [Pepcid 20 MG VIAL] Med 12/23/20 10:00 Ordered 20 mg IV Q12HT Ondansetron HCl 4 mg/2 ml [Zofran 4 MG/2 ML VIAL] Med 12/23/20 01:08 Ordered 4 mg IV Q6H PRN PRN Oxygen Nasal Cannula 3 lpm RT 12/23/20 02:46 Active Pulse Oximetry .continuos RT 12/23/20 02:46 Active Respiratory Therapy Assessment DAILY RT 12/23/20 02:46 Active Active Visit Medications Generic Name Dose Route Start Last Admin Trade Name Freq PRN Reason Stop Dose Admin Albuterol Sulfate 4 puff 12/23/20 07:00 Ventolin Common Canister 01/22/21 06:59 QIDRT ZAK Albuterol Sulfate 4 puff 12/23/20 02:47 12/23/20 02:36 Ventolin Common Canister 01/22/21 02:46 4 puff Q4H PRN PRN Administration SHORTNESS OF BREATH/WHEEZING Famotidine 20 mg 12/23/20 10:00 Pepcid 20 Mg Vial IV 01/22/21 09:59 Q12HT ZAK Azithromycin 500 mg in 250 mls @ 250 mls/hr 12/23/20 10:00 Zithromax 500 Mg/ 250 Ml Nacl Premix IV 01/22/21 09:59 Q24H10 ZAK Ondansetron HCl 4 mg 12/23/20 01:08 Zofran 4 Mg/2 Ml Vial IV 01/22/21 01:07 Q6H PRN PRN NAUSEA/VOMITING Home Medications Medication Instructions Recorded Confirmed Last Taken Type No Reportable Medications [No 12/23/20 12/23/20 Unknown History Reported Medications] Initialized on 12/23/20 04:14 - END OF NOTE Code(s): U07.1 - COVID-19; J12.82 - PNEUMONIA DUE TO CORONAVIRUS DISEASE
[2020-12-23] MEDS ORDERED: REMDESIVIR 200 MG in Sodium Chloride 0.9% 250 ML 250 ML IV ONE (08:13)
[2020-12-23] MEDS: solu-MEDROL 40 MG IV SCH ×2 (08:22→16:31)
[2020-12-23] MEDS: Pepcid 20 MG VIAL IV SCH ×2 (08:23→22:45)
[2020-12-23] MEDS: ROCEPHIN 1 Gm-D5w 50 ml Bag** 1 G/50 ML IVPB IV SCH (08:23)
[2020-12-23] MEDS: Zofran 4 MG/2 ML VIAL IV PRN ×2 (08:23→16:31)
[2020-12-23] MEDS: ENOXAPARIN SODIUM SQ SCH (08:23)
--- NOTE | 2020-12-23 08:58 | XRAY ---
Indication: Short of breath and hypoxia. Positive Covid 19. Comparison: March 26, 2017. Portable chest demonstrates new diffuse bilateral patchy airspace disease without consolidation/large effusion. Remaining heart and bony thorax unremarkable.
--- NOTE | 2020-12-23 08:58 | XRAY ---
Indication: Cough, short of breath, pneumonia, positive Covid 19. Comparison: One day earlier. Portable chest less inflated with grossly stable diffuse bilateral patchy airspace disease. Again no consolidation/large effusion. Remaining heart and bony thorax unremarkable.
--- NOTE | 2020-12-23 13:48 | CONS ---
CONSULT DATE: 12/23/2020 HISTORY: Nisha Ngo is a 40 year-old woman who had been admitted to [facility] after being sick for about a week. The patient reports that she was exposed to a couple of co-workers at work place who came down positive for COVID-19. Subsequently the patient also traveled to [place] however after coming back she developed complaints of shortness of breath, cough, vomiting and dehydration. She isolated herself at home in the bedroom until the symptoms progressed to the point to come to the emergency room. She was noted to have oxygen saturation of 88% on room air at rest. She has since been hospitalized and is requiring high flow oxygen to maintain saturations right around 92%. She is able to carry out a conversation. It is too soon to say if the patient is responding to treatment. She just received her first dose of loading Remdesivir along with steroids, antibiotics and other supportive care this morning. The patient reports one prior history of pneumonia. She has had no other known lung problems. PAST MEDICAL HISTORY: She again reportedly is in good health. PAST SURGICAL HISTORY: No recent surgery. PERSONAL AND SOCIAL HISTORY: She is a nonsmoker. MEDICATIONS: She takes no prescription medications. ALLERGIES: NKDA. PHYSICAL EXAMINATION: This is a middle aged woman who appears comfortable, able to carry out conversation as reported above. VITAL SIGNS: Temperature max 101F, heart rate 110, blood pressure 132/78 mmHg and saturating 92% on high flow oxygen. HEENT: Normocephalic. Oral exam unremarkable. CVS: First and second heart sounds are normal, regular, rhythmic. Mild tachycardia is noted. RESPIRATORY: Shows diminished breath sounds, crackles are heard bilaterally almost custodial up. ABDOMEN: Soft. EXTREMITIES: No significant edema is noted. LABORATORY DATA AND TESTS: Sodium 137, potassium 4.0, chloride 100, bicarb 26, BUN 9, creatinine 0.6, glucose 124. AST 77 and ALT 72. D-dimer 1094. INR 1.1. Chest x-ray shows bilateral patchy infiltrates consistent with clinical findings. ASSESSMENT: This is a 40 year old woman without significant past medical history, unvaccinated for COVID-19, who has been admitted with:1) Acute severe hypoxic respiratory failure. 2) Bilateral pneumonitis viral in etiology due to COVID-19. 3) Active COVID-19 infection. 4) Mildly abnormal liver function tests. RECOMMENDATIONS: 1) I agree with present treatment consisting of Remdesivir therapy. The patient has received loading dose today, will continue this on daily infusion basis for the next four days. 2) Continue antibiotics, steroids will taper and anticoagulation for deep vein thrombosis prophylaxis. 3) The patient needs to have cardiopulmonary monitoring at any point if she appears to be decompensating will consider transferring her to a higher level of care in [place]. At this point she appears marginal but is able to compensate fairly well. 4) Further recommendations awaiting clinical improvement. I can be reached for any clinical changes at any time. Thank you for allowing me to participate in the care of Miss Ngo.
[2020-12-23 16:50] LABS: ALBUMIN 3.7 g/dL (3.5-5.0); ALKALINE PHOSPHATASE 61 U/L (38-126); ANION GAP 17.3 MEQ/L (5-15); BLOOD UREA NITROGEN 8 mg/dL (7-17); CHLORIDE 103 mmol/L (98-107); Calcium 8.1 mg/dL (8.4-10.2); Carbon Dioxide 21 mmol/L (22-30); Creatinine 1 0.57 mg/dL (0.52-1.04); EST GLOMERULAR FILTRATION RATE > 60.0 ML/MIN; Glucose 118 mg/dL (74-106); Potassium 4.7 mmol/L (3.5-5.1); SGOT/AST 89 U/L (14-36); SGPT/ALT 73 U/L (0-35); SODIUM 136 mmol/L (137-145); Total Protein 6.6 g/dL (6.3-8.2)
[2020-12-23] MEDS ORDERED: Zithromax 500 MG/ 250 ML NaCl Premix 500 MG/250 ML IVPB IV SCH (22:00)
[2020-12-24] MEDS: solu-MEDROL 40 MG IV SCH ×2 (00:54→10:30)
[2020-12-24] MEDS: Sodium Chloride 0.9% 1000 ML 1,000 ML IV SCH (02:53)
[2020-12-24 05:22] LABS: Absolute Neutrophil Ct (ANC) 3.41 (1.4-6.9); BASOPHIL % 0.2 % (0.0-0.4); Basophil (Absolute #) 0.01 (0-0.4); Eosinophil (Absolute #) 0 (0-0.5); Hematocrit 38.3 % (35-47); Hemoglobin 11.8 gm/dl (12.0-16.0); Lymphocytes % 16.5 % (24.0-44.0); Mean Cell Volume 94.6 fl (78-100); Mean Corpuscular Hemoglobin 29.1 pg (26-32); Mean Corpuscular Hgb Concent. 30.8 g/dl (32-36); Mean Platelet Volume 9.4 fl (7.5-11.0); Monocyte (Absolute #) 0.12 (0.0-1.3); Monocytes % 2.8 % (0.0-12.0); Neutrophil % 80.5 % (36.0-66.0); Platelet Count 288 K/mm3 (150-450); Red Blood Count 4.05 M/mm3 (4.1-5.4); Red Cell Distribution Width 13.9 % (11.5-14.0); White Blood Count 4.2 K/mm3 (4.0-10.5)
[2020-12-24 05:42] LABS: ALBUMIN 3.6 g/dL (3.5-5.0); ALKALINE PHOSPHATASE 59 U/L (38-126); ANION GAP 11.9 MEQ/L (5-15); BLOOD UREA NITROGEN 12 mg/dL (7-17); CHLORIDE 103 mmol/L (98-107); Calcium 7.9 mg/dL (8.4-10.2); Carbon Dioxide 29 mmol/L (22-30); Creatinine 1 0.54 mg/dL (0.52-1.04); EST GLOMERULAR FILTRATION RATE > 60.0 ML/MIN; Glucose 176 mg/dL (74-106); Potassium 4.3 mmol/L (3.5-5.1); SGOT/AST 91 U/L (14-36); SGPT/ALT 85 U/L (0-35); SODIUM 140 mmol/L (137-145); Total Protein 6.6 g/dL (6.3-8.2)
[2020-12-24] MEDS: VENTOLIN COMMON CANISTER IH SCH ×3 (07:50→16:47)
[2020-12-24 09:22] VITALS: BP 130/68
[2020-12-24] MEDS ORDERED: REMDESIVIR 100 MG in Sodium Chloride 0.9% 100 ML BAG 100 ML IV SCH (10:00)
[2020-12-24] MEDS: Pepcid 20 MG VIAL IV SCH (10:30)
[2020-12-24] MEDS: ENOXAPARIN SODIUM SQ SCH (10:30)
[2020-12-24] MEDS: ROCEPHIN 1 Gm-D5w 50 ml Bag** 1 G/50 ML IVPB IV SCH (10:31)
[2020-12-24] MEDS ORDERED: Ativan 2 MG/1 ML VIAL IV PRN (11:25)
--- NOTE | 2020-12-24 12:20 | XRAY ---
Indication: Respiratory distress. Positive Covid 19. Multiple contiguous axial images obtained through the chest prior to and following 80 cc Isovue 370 contrast as ordered. Comparison: None Lungs demonstrates markedly diffuse bilateral mosaic airspace opacities without effusion. Tiny left lower lobe calcified granuloma. Heart not enlarged. Aorta is normal in course and caliber. No pathologic mediastinal/hilar lymphadenopathy. Bony thorax intact with minimal degenerative changes throughout the spine. Limited upper abdomen demonstrates fatty liver. Impression: 1. Diffuse bilateral mosaic airspace opacities. Commonly report imaging features of Covid 19 pneumonia are present. Other processes such as influenza pneumonia and organizing pneumonia, as can be seen with drug toxicity and connective tissue disease, can cause a similar imaging pattern. 2. Incidental fatty liver.
--- NOTE | 2020-12-24 12:33 | PCM.NOTE ---
Date and Time: 12/24/20 1229 Subjective Assessment: patient is getting worse. - Review of Systems Constitutional: Fatigue, Weakness, No Fever, No Chills Eyes: No Symptoms Ears, Nose, & Throat: No Symptoms Respiratory: Orthopnea, Short Of Breath, Wheezing, No Cough Cardiac: No Chest Pain, No Edema, No Syncope Abdominal/Gastrointestinal: No Abdominal Pain, No Nausea, No Vomiting, No Diarrhea Genitourinary Symptoms: No Dysuria Musculoskeletal: No Back Pain, No Neck Pain Skin: No Rash Neurological: No Dizziness, No Focal Weakness, No Sensory Changes Psychological: No Symptoms Endocrine: No Symptoms Hematologic/Lymphatic: No Symptoms Immunological/Allergic: No Symptoms Objective Exam General Appearance: no apparent distress, alert Neurologic Exam: alert, oriented x 3, cooperative, No motor deficits Skin Exam: normal color, warm, dry Eye Exam: PERRL, EOMI, eyes nml inspection Ears, Nose, Throat Exam: normal ENT inspection, pharynx normal, moist mucous membranes Neck Exam: normal inspection, non-tender, supple, full range of motion Respiratory Exam: diminished breath sounds, accessory muscle use, prolonged expirations, crackles/rales, rhonchi, wheezing, No respiratory distress Cardiovascular Exam: regular rate/rhythm, normal heart sounds Gastrointestinal/Abdomen Exam: soft, No tenderness, No mass Extremity Exam: normal inspection, normal range of motion Back Exam: normal inspection, normal range of motion, No CVA tenderness, No vertebral tenderness Pelvic Exam: deferred Rectal Exam: deferred OBJECTIVE DATA Vital Signs: Vital Signs - 24 hr Temp Pulse Resp BP Pulse Ox 12/24/20 11:00 108 H 18 95 12/24/20 10:00 102 H 25 H 94 L 12/24/20 09:00 102 H 25 H 95 12/24/20 08:00 97.4 F 97 H 28 H 130/68 87 L 12/24/20 07:00 98 H 12/24/20 06:07 98 H 22 90 L 12/24/20 06:00 22 12/24/20 05:02 95 H 22 95 12/24/20 04:05 67 22 12/24/20 04:00 20 12/24/20 03:00 90 20 88 L 12/24/20 02:00 88 22 90 L 12/24/20 00:47 98.8 F 88 24 124/72 95 12/23/20 23:56 24 12/23/20 23:00 98.7 F 97 H 28 H 124/65 92 L 12/23/20 22:00 28 H 12/23/20 21:46 102 H 19 90 L 12/23/20 20:57 106 H 28 H 93 L 12/23/20 20:00 98.7 F 105 H 22 144/82 91 L 12/23/20 18:51 107 H 19 94 L 12/23/20 17:46 106 H 24 92 L 12/23/20 17:44 18 12/23/20 17:00 108 H 26 H 92 L 12/23/20 16:00 98.4 F 110 H 26 H 149/85 92 L 12/23/20 15:00 107 H 20 94 L 12/23/20 14:43 107 H 20 94 L 12/23/20 14:00 107 H 21 93 L 12/23/20 13:15 93 L 12/23/20 13:00 110 H 28 H 94 L Pain Assessment - Last Documented Pain Intensity 6 Pain Scale Used 0-10 Pain Scale Intake and Output: Intake & Output 12/22/20 12/23/20 12/24/20 12/25/20 11:59 11:59 11:59 11:59 Intake Total 60 600 Output Total 800 700 Balance -740 -100 Weight 96.1 kg Lab Results: Lab Results-Last 24 Hours 12/23/20 12/23/20 12/24/20 Range/Units 04:42 05:00 04:50 WBC 4.2 (4.0-10.5) K/mm3 RBC 4.05 L (4.1-5.4) M/mm3 Hgb 11.8 L (12.0-16.0) gm/dl Hct 38.3 (35-47) % MCV 94.6 (78-100) fl MCH 29.1 (26-32) pg MCHC 30.8 L (32-36) g/dl RDW 13.9 (11.5-14.0) % Plt Count 288 D (150-450) K/mm3 MPV 9.4 (7.5-11.0) fl Gran % 80.5 H (36.0-66.0) % Eos # (Auto) 0 (0-0.5) Absolute Lymphs (auto) 0.70 L (1.0-4.6) Absolute Monos (auto) 0.12 (0.0-1.3) Lymphocytes % 16.5 L (24.0-44.0) % Monocytes % 2.8 (0.0-12.0) % Eosinophils % 0.0 (0.00-5.0) % Basophils % 0.2 (0.0-0.4) % Absolute Granulocytes 3.41 (1.4-6.9) Basophils # 0.01 (0-0.4) D-Dimer (215-500) ng/mL Sodium 136 L (137-145) mmol/L Potassium 4.7 (3.5-5.1) mmol/L Chloride 103 (98-107) mmol/L Carbon Dioxide 21 L (22-30) mmol/L Anion Gap 17.3 H (5-15) MEQ/L BUN 8 (7-17) mg/dL Creatinine 0.57 (0.52-1.04) mg/dL Estimated GFR > 60.0 ML/MIN Glucose 118 H (74-106) mg/dL Calcium 8.1 L (8.4-10.2) mg/dL Total Bilirubin 0.80 (0.2-1.3) mg/dL AST 89 H (14-36) U/L ALT 73 H (0-35) U/L Alkaline Phosphatase 61 (38-126) U/L Serum Total Protein 6.6 (6.3-8.2) g/dL Albumin 3.7 (3.5-5.0) g/dL Procalcitonin 0.149 H (0.030-0.080) ng/mL 12/24/20 12/24/20 12/24/20 Range/Units 04:50 04:50 04:50 WBC (4.0-10.5) K/mm3 RBC (4.1-5.4) M/mm3 Hgb (12.0-16.0) gm/dl Hct (35-47) % MCV (78-100) fl MCH (26-32) pg MCHC (32-36) g/dl RDW (11.5-14.0) % Plt Count (150-450) K/mm3 MPV (7.5-11.0) fl Gran % (36.0-66.0) % Eos # (Auto) (0-0.5) Absolute Lymphs (auto) (1.0-4.6) Absolute Monos (auto) (0.0-1.3) Lymphocytes % (24.0-44.0) % Monocytes % (0.0-12.0) % Eosinophils % (0.00-5.0) % Basophils % (0.0-0.4) % Absolute Granulocytes (1.4-6.9) Basophils # (0-0.4) D-Dimer 1285 H* (215-500) ng/mL Sodium 140 (137-145) mmol/L Potassium 4.3 (3.5-5.1) mmol/L Chloride 103 (98-107) mmol/L Carbon Dioxide 29 (22-30) mmol/L Anion Gap 11.9 (5-15) MEQ/L BUN 12 (7-17) mg/dL Creatinine 0.54 (0.52-1.04) mg/dL Estimated GFR > 60.0 ML/MIN Glucose 176 H (74-106) mg/dL Calcium 7.9 L (8.4-10.2) mg/dL Total Bilirubin 0.40 (0.2-1.3) mg/dL AST 91 H (14-36) U/L ALT 85 H (0-35) U/L Alkaline Phosphatase 59 (38-126) U/L Serum Total Protein 6.6 (6.3-8.2) g/dL Albumin 3.6 (3.5-5.0) g/dL Procalcitonin 0.118 H (0.030-0.080) ng/mL Radiology Exams: Radiology Procedures Category Date Time Status CHEST 1 VIEW (PORTABLE) Routine Exams 12/23/20 08:15 Completed CHEST 1 VIEW (PORTABLE) Stat Exams 12/22/20 23:46 Completed CHEST W/WO CONTRAST [CT] Urgent Exams 12/24/20 09:41 Completed Multi-Disciplinary Progress Notes: Multi-Disciplinary Progress Notes 12/24/20 10:15 Case Management Note by Anadi Sexton PATIENT STILL VERY ACUTELY ILL- WILL CONTINUE TO HOLD CASE MANAGEMENT ASSESS UNTIL CLOSER TO TIME OF DC Initialized on 12/24/20 10:15 - END OF NOTE Assessment/Plan (1) Pneumonia due to COVID-19 virus Current Visit: Yes Status: Acute Assessment & Plan: Chief Complaint Diagnosis nausea shortness of breath, headache, Positive COVID 19 3 days ago Allergies Allergy/AdvReac Type Severity Reaction Status Date / Time No Known Drug Allergies Allergy Verified 12/23/20 02:42 Vital Signs (Last 24 hours) Temp Pulse Resp BP Pulse Ox 12/24/20 11:00 108 H 18 95 12/24/20 10:00 102 H 25 H 94 L 12/24/20 09:00 102 H 25 H 95 12/24/20 08:00 97.4 F 97 H 28 H 130/68 87 L 12/24/20 07:00 98 H 12/24/20 06:07 98 H 22 90 L 12/24/20 06:00 22 12/24/20 05:02 95 H 22 95 12/24/20 04:05 67 22 12/24/20 04:00 20 12/24/20 03:00 90 20 88 L 12/24/20 02:00 88 22 90 L 12/24/20 00:47 98.8 F 88 24 124/72 95 12/23/20 23:56 24 12/23/20 23:00 98.7 F 97 H 28 H 124/65 92 L 12/23/20 22:00 28 H 12/23/20 21:46 102 H 19 90 L 12/23/20 20:57 106 H 28 H 93 L 12/23/20 20:00 98.7 F 105 H 22 144/82 91 L 12/23/20 18:51 107 H 19 94 L 12/23/20 17:46 106 H 24 92 L 12/23/20 17:44 18 12/23/20 17:00 108 H 26 H 92 L 12/23/20 16:00 98.4 F 110 H 26 H 149/85 92 L 12/23/20 15:00 107 H 20 94 L 12/23/20 14:43 107 H 20 94 L 12/23/20 14:00 107 H 21 93 L 12/23/20 13:15 93 L 12/23/20 13:00 110 H 28 H 94 L Home Medications Medication Instructions Recorded Confirmed Last Taken Type No Reportable Medications [No 12/23/20 12/23/20 Unknown History Reported Medications] Current Medications Generic Name Dose Route Start Last Admin Trade Name Edyta PRN Reason Stop Dose Admin Acetaminophen 650 mg 12/23/20 04:16 08/12/21 22:45 Tylenol 325 Mg PO 01/22/21 04:15 650 mg Q4H PRN PRN Administration PAIN AND/OR FEVER Albuterol Sulfate 4 puff 12/23/20 07:00 12/23/20 19:54 Ventolin Common Canister IH 01/22/21 06:59 4 puff QIDRT ZAK Administration Albuterol Sulfate 4 puff 12/23/20 02:47 12/23/20 02:36 Ventolin Common Canister IH 01/22/21 02:46 4 puff Q4H PRN PRN Administration SHORTNESS OF BREATH/WHEEZING Enoxaparin Sodium 40 mg 12/23/20 10:00 12/24/20 10:30 Enoxaparin Sodium SQ 01/22/21 09:59 40 mg DAILY ZAK Administration Famotidine 20 mg 12/23/20 10:00 12/24/20 10:30 Pepcid 20 Mg Vial IV 01/22/21 09:59 20 mg Q12HT ZAK Administration Azithromycin 500 mg in 250 mls @ 250 mls/hr 12/23/20 22:00 12/23/20 21:30 Zithromax 500 Mg/ 250 Ml Nacl Premix IV 01/22/21 21:59 250 mls/hr QPM ZAK Administration Sodium Chloride 1,000 mls @ 50 mls/hr 12/23/20 04:30 12/24/20 02:53 Sodium Chloride 0.9% 1000 Ml IV 01/22/21 04:29 Not Given .Q20H ZAK Ceftriaxone Sodium/Dextrose 1 g in 50 mls @ 100 mls/hr 12/23/20 10:00 12/24/20 10:31 Rocephin 1 Gm-D5w 50 Ml Bag IV 12/26/20 09:59 100 mls/hr Q24H10 ZAK Administration Remdesivir 100 mg/ Sodium 100 mls @ 100 mls/hr 12/24/20 10:00 12/24/20 11:11 Chloride IV 12/27/20 10:59 100 mls/hr Q24H ZAK Administration Lorazepam 1 mg 12/24/20 11:25 Ativan 2 Mg/1 Ml Vial IV 01/23/21 11:24 Q4H PRN PRN ANXIETY/AGITATION Methylprednisolone Sodium Succinate 40 mg 12/23/20 08:00 12/24/20 10:30 Solu-Medrol 40 Mg IV 01/22/21 07:59 40 mg Q8H ZAK Administration Ondansetron HCl 4 mg 12/23/20 01:08 12/23/20 16:31 Zofran 4 Mg/2 Ml Vial IV 01/22/21 01:07 4 mg Q6H PRN PRN Administration NAUSEA/VOMITING Discontinued Medications Generic Name Dose Route Start Last Admin Trade Name Freq PRN Reason Stop Dose Admin Sodium Chloride 1,000 mls @ 999 mls/hr 12/22/20 23:45 12/23/20 00:44 Sodium Chloride 0.9% 1000 Ml IV 12/23/20 00:45 999 mls/hr .Q1H1M STA Administration Azithromycin 500 mg in 250 mls @ 250 mls/hr 12/22/20 23:45 12/23/20 00:43 Zithromax 500 Mg/ 250 Ml Nacl Premix IV 12/23/20 00:44 250 ml/hr STAT STA 250 mls/hr Administration Azithromycin Confirm 12/23/20 00:39 Zithromax 500 Mg/ 250 Ml Nacl Premix Administered 12/23/20 00:40 Dose 500 mg in 250 mls @ ud IV .STK-MED ONE Sodium Chloride Confirm 12/23/20 00:39 Sodium Chloride 0.9% 1000 Ml Administered 12/23/20 00:40 Dose 1,000 mls @ ud .ROUTE .STK-MED ONE Remdesivir 200 mg/ Sodium 250 mls @ 125 mls/hr 12/23/20 08:13 12/23/20 09:58 Chloride IV 12/23/20 10:12 125 mls/hr ONCE ONE Administration Intake & Output (Last 24 hours) 12/22/20 12/23/20 12/24/20 12/25/20 11:59 11:59 11:59 11:59 Intake Total 60 600 Output Total 800 700 Balance -740 -100 Weight 96.1 kg Laboratory Results (Last 24 hours) 12/24/20 12/24/20 12/24/20 04:50 04:50 04:50 WBC RBC Hgb Hct MCV MCH MCHC RDW Plt Count MPV Gran % Eos # (Auto) Absolute Lymphs (auto) Absolute Monos (auto) Lymphocytes % Monocytes % Eosinophils % Basophils % Absolute Granulocytes Basophils # D-Dimer 1285 H* Sodium 140 Potassium 4.3 Chloride 103 Carbon Dioxide 29 Anion Gap 11.9 BUN 12 Creatinine 0.54 Estimated GFR > 60.0 Glucose 176 H Calcium 7.9 L Total Bilirubin 0.40 AST 91 H ALT 85 H Alkaline Phosphatase 59 Serum Total Protein 6.6 Albumin 3.6 Procalcitonin 0.118 H 12/24/20 12/23/20 12/23/20 04:50 05:00 04:42 WBC 4.2 RBC 4.05 L Hgb 11.8 L Hct 38.3 MCV 94.6 MCH 29.1 MCHC 30.8 L RDW 13.9 Plt Count 288 D MPV 9.4 Gran % 80.5 H Eos # (Auto) 0 Absolute Lymphs (auto) 0.70 L Absolute Monos (auto) 0.12 Lymphocytes % 16.5 L Monocytes % 2.8 Eosinophils % 0.0 Basophils % 0.2 Absolute Granulocytes 3.41 Basophils # 0.01 D-Dimer Sodium 136 L Potassium 4.7 Chloride 103 Carbon Dioxide 21 L Anion Gap 17.3 H BUN 8 Creatinine 0.57 Estimated GFR > 60.0 Glucose 118 H Calcium 8.1 L Total Bilirubin 0.80 AST 89 H ALT 73 H Alkaline Phosphatase 61 Serum Total Protein 6.6 Albumin 3.7 Procalcitonin 0.149 H Orders (Last 24 hours) Category Date Time Status CHEST W/WO CONTRAST [CT] Urgent Exams 12/24/20 09:41 Completed CBC W DIFF AM.LAB Lab 12/24/20 04:50 Completed CMP AM.LAB Lab 12/24/20 04:50 Completed D-DIMER QUANTITATIVE AM.LAB Lab 12/24/20 04:50 Completed PROCALCITONIN DAILY Lab 12/24/20 04:50 Completed Azithromycin 500 mg/250 ml [Zithromax 500 MG/ 250 ML Med 12/23/20 22:00 Active NaCl Premix] 500 mg in 250 ml IV QPM Lorazepam 2 mg/1 ml [Ativan 2 MG/1 ML VIAL] Med 12/24/20 11:25 Active 1 mg IV Q4H PRN PRN Remdesivir 100 mg Med 12/24/20 10:00 Active NaCl 0.9% 100Ml [Sodium Chloride 0.9% 100 ML BAG] 100 ml IV Q24H Patient Care Notes (Last 24 hours) 12/24/20 10:15 Case Management Note by Anaid Sexton PATIENT STILL VERY ACUTELY ILL- WILL CONTINUE TO HOLD CASE MANAGEMENT ASSESS UNTIL CLOSER TO TIME OF DC Initialized on 12/24/20 10:15 - END OF NOTE 12/23/20 12:32 Nursing Note by Linda Dewitt dr. at bedside rounding on pt. Initialized on 12/23/20 12:32 - END OF NOTE I talked to DR Mo Bermudez about patient worsening condition. He advised patient to be transferred to [facility], but they dont have bed so [facility] and we got bed so we will transfer patient to [facility] ICU. Hospitalist accepted patient. Code(s): U07.1 - COVID-19; J12.82 - PNEUMONIA DUE TO CORONAVIRUS DISEASE
--- NOTE | 2020-12-24 13:04 | PCM.DS ---
Discharge Summary Date of Admission: 12/23/20 01:39 Admitting Physician: BETSY HALL Consults: Consults on Case 12/23/20 08:10 Consult Pulmonology ROUTINE Primary Care Provider: BETSY HALL Allergies Allergies No Known Drug Allergies Allergy (Verified 12/23/20 02:42) Hospital Summary - Hospital Course Hospital Course: Chief Complaint Diagnosis nausea shortness of breath, headache, Positive COVID 19 3 days ago Allergies Allergy/AdvReac Type Severity Reaction Status Date / Time No Known Drug Allergies Allergy Verified 12/23/20 02:42 Vital Signs (Last 24 hours) Temp Pulse Resp BP Pulse Ox 12/24/20 11:00 108 H 18 95 12/24/20 10:00 102 H 25 H 94 L 12/24/20 09:00 102 H 25 H 95 12/24/20 08:00 97.4 F 97 H 28 H 130/68 87 L 12/24/20 07:00 98 H 12/24/20 06:07 98 H 22 90 L 12/24/20 06:00 22 12/24/20 05:02 95 H 22 95 12/24/20 04:05 67 22 12/24/20 04:00 20 12/24/20 03:00 90 20 88 L 12/24/20 02:00 88 22 90 L 12/24/20 00:47 98.8 F 88 24 124/72 95 12/23/20 23:56 24 12/23/20 23:00 98.7 F 97 H 28 H 124/65 92 L 12/23/20 22:00 28 H 12/23/20 21:46 102 H 19 90 L 12/23/20 20:57 106 H 28 H 93 L 12/23/20 20:00 98.7 F 105 H 22 144/82 91 L 12/23/20 18:51 107 H 19 94 L 12/23/20 17:46 106 H 24 92 L 12/23/20 17:44 18 12/23/20 17:00 108 H 26 H 92 L 12/23/20 16:00 98.4 F 110 H 26 H 149/85 92 L 12/23/20 15:00 107 H 20 94 L 12/23/20 14:43 107 H 20 94 L 12/23/20 14:00 107 H 21 93 L 12/23/20 13:15 93 L Home Medications Medication Instructions Recorded Confirmed Last Taken Type No Reportable Medications [No 12/23/20 12/23/20 Unknown History Reported Medications] Current Medications Generic Name Dose Route Start Last Admin Trade Name Freq PRN Reason Stop Dose Admin Acetaminophen 650 mg 12/23/20 04:16 12/23/20 22:45 Tylenol 325 Mg PO 01/22/21 04:15 650 mg Q4H PRN PRN Administration PAIN AND/OR FEVER Albuterol Sulfate 4 puff 12/23/20 07:00 12/23/20 19:54 Ventolin Common Canister IH 01/22/21 06:59 4 puff QIDRT ZAK Administration Albuterol Sulfate 4 puff 12/23/20 02:47 12/23/20 02:36 Ventolin Common Canister IH 01/22/21 02:46 4 puff Q4H PRN PRN Administration SHORTNESS OF BREATH/WHEEZING Enoxaparin Sodium 40 mg 12/23/20 10:00 12/24/20 10:30 Enoxaparin Sodium SQ 01/22/21 09:59 40 mg DAILY ZAK Administration Famotidine 20 mg 12/23/20 10:00 12/24/20 10:30 Pepcid 20 Mg Vial IV 01/22/21 09:59 20 mg Q12HT ZAK Administration Azithromycin 500 mg in 250 mls @ 250 mls/hr 12/23/20 22:00 12/23/20 21:30 Zithromax 500 Mg/ 250 Ml Nacl Premix IV 01/22/21 21:59 250 mls/hr QPM ZAK Administration Sodium Chloride 1,000 mls @ 50 mls/hr 12/23/20 04:30 12/24/20 02:53 Sodium Chloride 0.9% 1000 Ml IV 01/22/21 04:29 Not Given .Q20H ZAK Ceftriaxone Sodium/Dextrose 1 g in 50 mls @ 100 mls/hr 12/23/20 10:00 12/24/20 10:31 Rocephin 1 Gm-D5w 50 Ml Bag IV 12/26/20 09:59 100 mls/hr Q24H10 ZAK Administration Remdesivir 100 mg/ Sodium 100 mls @ 100 mls/hr 12/24/20 10:00 12/24/20 11:11 Chloride IV 12/27/20 10:59 100 mls/hr Q24H ZAK Administration Lorazepam 1 mg 12/24/20 11:25 12/24/20 12:52 Ativan 2 Mg/1 Ml Vial IV 01/23/21 11:24 1 mg Q4H PRN PRN Administration ANXIETY/AGITATION Methylprednisolone Sodium Succinate 40 mg 12/23/20 08:00 12/24/20 10:30 Solu-Medrol 40 Mg IV 01/22/21 07:59 40 mg Q8H ZAK Administration Ondansetron HCl 4 mg 12/23/20 01:08 12/23/20 16:31 Zofran 4 Mg/2 Ml Vial IV 01/22/21 01:07 4 mg Q6H PRN PRN Administration NAUSEA/VOMITING Discontinued Medications Generic Name Dose Route Start Last Admin Trade Name Freq PRN Reason Stop Dose Admin Sodium Chloride 1,000 mls @ 999 mls/hr 12/22/20 23:45 12/23/20 00:44 Sodium Chloride 0.9% 1000 Ml IV 12/23/20 00:45 999 mls/hr .Q1H1M STA Administration Azithromycin 500 mg in 250 mls @ 250 mls/hr 12/22/20 23:45 12/23/20 00:43 Zithromax 500 Mg/ 250 Ml Nacl Premix IV 12/23/20 00:44 250 ml/hr STAT STA 250 mls/hr Administration Azithromycin Confirm 12/23/20 00:39 Zithromax 500 Mg/ 250 Ml Nacl Premix Administered 12/23/20 00:40 Dose 500 mg in 250 mls @ ud IV .STK-MED ONE Sodium Chloride Confirm 12/23/20 00:39 Sodium Chloride 0.9% 1000 Ml Administered 12/23/20 00:40 Dose 1,000 mls @ ud .ROUTE .STK-MED ONE Remdesivir 200 mg/ Sodium 250 mls @ 125 mls/hr 12/23/20 08:13 12/23/20 09:58 Chloride IV 12/23/20 10:12 125 mls/hr ONCE ONE Administration Intake & Output (Last 24 hours) 12/22/20 12/23/20 12/24/20 12/25/20 11:59 11:59 11:59 11:59 Intake Total 60 600 Output Total 800 700 Balance -740 -100 Weight 96.1 kg Laboratory Results (Last 24 hours) 12/24/20 12/24/20 12/24/20 04:50 04:50 04:50 WBC RBC Hgb Hct MCV MCH MCHC RDW Plt Count MPV Gran % Eos # (Auto) Absolute Lymphs (auto) Absolute Monos (auto) Lymphocytes % Monocytes % Eosinophils % Basophils % Absolute Granulocytes Basophils # D-Dimer 1285 H* Sodium 140 Potassium 4.3 Chloride 103 Carbon Dioxide 29 Anion Gap 11.9 BUN 12 Creatinine 0.54 Estimated GFR > 60.0 Glucose 176 H Calcium 7.9 L Total Bilirubin 0.40 AST 91 H ALT 85 H Alkaline Phosphatase 59 Serum Total Protein 6.6 Albumin 3.6 Procalcitonin 0.118 H 12/24/20 12/23/20 04:50 05:00 WBC 4.2 RBC 4.05 L Hgb 11.8 L Hct 38.3 MCV 94.6 MCH 29.1 MCHC 30.8 L RDW 13.9 Plt Count 288 D MPV 9.4 Gran % 80.5 H Eos # (Auto) 0 Absolute Lymphs (auto) 0.70 L Absolute Monos (auto) 0.12 Lymphocytes % 16.5 L Monocytes % 2.8 Eosinophils % 0.0 Basophils % 0.2 Absolute Granulocytes 3.41 Basophils # 0.01 D-Dimer Sodium 136 L Potassium 4.7 Chloride 103 Carbon Dioxide 21 L Anion Gap 17.3 H BUN 8 Creatinine 0.57 Estimated GFR > 60.0 Glucose 118 H Calcium 8.1 L Total Bilirubin 0.80 AST 89 H ALT 73 H Alkaline Phosphatase 61 Serum Total Protein 6.6 Albumin 3.7 Procalcitonin Orders (Last 24 hours) Category Date Time Status CHEST W/WO CONTRAST [CT] Urgent Exams 12/24/20 09:41 Completed CBC W DIFF AM.LAB Lab 12/24/20 04:50 Completed CMP AM.LAB Lab 12/24/20 04:50 Completed D-DIMER QUANTITATIVE AM.LAB Lab 12/24/20 04:50 Completed PROCALCITONIN DAILY Lab 12/24/20 04:50 Completed Azithromycin 500 mg/250 ml [Zithromax 500 MG/ 250 ML Med 12/23/20 22:00 Active NaCl Premix] 500 mg in 250 ml IV QPM Lorazepam 2 mg/1 ml [Ativan 2 MG/1 ML VIAL] Med 12/24/20 11:25 Active 1 mg IV Q4H PRN PRN Remdesivir 100 mg Med 12/24/20 10:00 Active NaCl 0.9% 100Ml [Sodium Chloride 0.9% 100 ML BAG] 100 ml IV Q24H Patient Care Notes (Last 24 hours) 12/24/20 12:55 Nursing Note by Alice Hernandez CALL [facility]SF[facility] AT 1251 AND REQUESTED AT BED. SPOKE WITH DEIRDRE AT [phone] Initialized on 12/24/20 12:55 - END OF NOTE 12/24/20 10:15 Case Management Note by Anaid Sexton PATIENT STILL VERY ACUTELY ILL- WILL CONTINUE TO HOLD CASE MANAGEMENT ASSESS UNTIL CLOSER TO TIME OF DC Initialized on 12/24/20 10:15 - END OF NOTE - Vitals & Intake/Output Vital Signs: Vital Signs Temperature 97.4 F 12/24/20 08:00 Pulse Rate 108 H 12/24/20 11:00 Respiratory Rate 18 12/24/20 11:00 Blood Pressure 130/68 12/24/20 08:00 O2 Sat by Pulse Oximetry 95 12/24/20 11:00 Intake & Output: Intake & Output 12/22/20 12/23/20 12/24/20 12/25/20 11:59 11:59 11:59 11:59 Intake Total 60 600 Output Total 800 700 Balance -740 -100 Weight 96.1 kg - Lab Result Diagrams: 12/24/20 04:50 12/24/20 04:50 Lab Results-Last 24 Hrs: Lab Results-Last 24 Hours 12/23/20 12/24/20 12/24/20 Range/Units 05:00 04:50 04:50 WBC 4.2 (4.0-10.5) K/mm3 RBC 4.05 L (4.1-5.4) M/mm3 Hgb 11.8 L (12.0-16.0) gm/dl Hct 38.3 (35-47) % MCV 94.6 (78-100) fl MCH 29.1 (26-32) pg MCHC 30.8 L (32-36) g/dl RDW 13.9 (11.5-14.0) % Plt Count 288 D (150-450) K/mm3 MPV 9.4 (7.5-11.0) fl Gran % 80.5 H (36.0-66.0) % Eos # (Auto) 0 (0-0.5) Absolute Lymphs (auto) 0.70 L (1.0-4.6) Absolute Monos (auto) 0.12 (0.0-1.3) Lymphocytes % 16.5 L (24.0-44.0) % Monocytes % 2.8 (0.0-12.0) % Eosinophils % 0.0 (0.00-5.0) % Basophils % 0.2 (0.0-0.4) % Absolute Granulocytes 3.41 (1.4-6.9) Basophils # 0.01 (0-0.4) D-Dimer (215-500) ng/mL Sodium 136 L 140 (137-145) mmol/L Potassium 4.7 4.3 (3.5-5.1) mmol/L Chloride 103 103 (98-107) mmol/L Carbon Dioxide 21 L 29 (22-30) mmol/L Anion Gap 17.3 H 11.9 (5-15) MEQ/L BUN 8 12 (7-17) mg/dL Creatinine 0.57 0.54 (0.52-1.04) mg/dL Estimated GFR > 60.0 > 60.0 ML/MIN Glucose 118 H 176 H (74-106) mg/dL Calcium 8.1 L 7.9 L (8.4-10.2) mg/dL Total Bilirubin 0.80 0.40 (0.2-1.3) mg/dL AST 89 H 91 H (14-36) U/L ALT 73 H 85 H (0-35) U/L Alkaline Phosphatase 61 59 (38-126) U/L Serum Total Protein 6.6 6.6 (6.3-8.2) g/dL Albumin 3.7 3.6 (3.5-5.0) g/dL Procalcitonin (0.030-0.080) ng/mL 12/24/20 12/24/20 Range/Units 04:50 04:50 WBC (4.0-10.5) K/mm3 RBC (4.1-5.4) M/mm3 Hgb (12.0-16.0) gm/dl Hct (35-47) % MCV (78-100) fl MCH (26-32) pg MCHC (32-36) g/dl RDW (11.5-14.0) % Plt Count (150-450) K/mm3 MPV (7.5-11.0) fl Gran % (36.0-66.0) % Eos # (Auto) (0-0.5) Absolute Lymphs (auto) (1.0-4.6) Absolute Monos (auto) (0.0-1.3) Lymphocytes % (24.0-44.0) % Monocytes % (0.0-12.0) % Eosinophils % (0.00-5.0) % Basophils % (0.0-0.4) % Absolute Granulocytes (1.4-6.9) Basophils # (0-0.4) D-Dimer 1285 H* (215-500) ng/mL Sodium (137-145) mmol/L Potassium (3.5-5.1) mmol/L Chloride (98-107) mmol/L Carbon Dioxide (22-30) mmol/L Anion Gap (5-15) MEQ/L BUN (7-17) mg/dL Creatinine (0.52-1.04) mg/dL Estimated GFR ML/MIN Glucose (74-106) mg/dL Calcium (8.4-10.2) mg/dL Total Bilirubin (0.2-1.3) mg/dL AST (14-36) U/L ALT (0-35) U/L Alkaline Phosphatase (38-126) U/L Serum Total Protein (6.3-8.2) g/dL Albumin (3.5-5.0) g/dL Procalcitonin 0.118 H (0.030-0.080) ng/mL - Radiology Exams Ordered Rad Exams-Entire Visit: Radiology Procedures Category Date Time Status CHEST 1 VIEW (PORTABLE) Routine Exams 12/23/20 08:15 Completed CHEST 1 VIEW (PORTABLE) Stat Exams 12/22/20 23:46 Completed CHEST W/WO CONTRAST [CT] Urgent Exams 12/24/20 09:41 Completed - Procedures and Test Procedures and Tests throughout Hospitalization: Therapy Orders & Screens 12/23/20 01:08 Respiratory Therapy Consult ROUTINE Comment: Reason For Exam: 12/23/20 02:46 Oxygen Nasal Cannula 3 lpm Comment: Respiratory Therapy Assessment DAILY Comment: 12/23/20 08:00 Respiratory Therapy Consult ROUTINE Comment: Reason For Exam: Diagnosis: COVID 12/23/20 08:14 Oxygen High Flow per RT 80% Comment: Diagnosis: nausea shortness of breath, headache, Positive COVID 19 3 days ago 12/23/20 08:17 Incentive Spirometry UD Comment: Diagnosis: nausea shortness of breath, headache, Positive COVID 19 3 days ago Discharge Exam General Appearance: no apparent distress, alert Neurologic Exam: alert, oriented x 3, cooperative, normal mood/affect, nml cerebellar function, sensation nml, No motor deficits Eye Exam: PERRL, EOMI, eyes nml inspection Ears, Nose, Throat Exam: normal ENT inspection, pharynx normal, moist mucous membranes Neck Exam: normal inspection, non-tender, supple, full range of motion Respiratory Exam: normal breath sounds, respiratory distress, diminished breath sounds, accessory muscle use, crackles/rales, rhonchi, wheezing Cardiovascular Exam: regular rate/rhythm, normal heart sounds Gastrointestinal/Abdomen Exam: soft, No tenderness, No mass Pelvic Exam: deferred Rectal Exam: deferred Back Exam: normal inspection, normal range of motion, No CVA tenderness, No v ertebral tenderness Extremity Exam: normal inspection, normal range of motion Skin Exam: normal color, warm, dry Final Diagnosis/Problem List - Final Discharge Diagnosis/Problem (1) Pneumonia due to COVID-19 virus Current Visit: Yes Status: Acute Priority: High Assessment & Plan: Patient is getting transfer to [facility] Code(s): U07.1 - COVID-19; J12.82 - PNEUMONIA DUE TO CORONAVIRUS DISEASE - Discharge Discharge Date: 12/24/20 Disposition: DC TO [facility] Condition: Fair Prescriptions: No Action No Reportable Medications [No Reported Medications] Follow up with: BETSY HALL MD [Primary Care Provider] -
[2020-12-24 15:30] VITALS: PULSE 102; O2SAT 91
== END 2020-12-24 16:40 | disposition home or self-care (01) | DRG 177 ==
LOC: ED 23:19 → MED SURG 12-23 01:39
PROVIDERS: ADMIT General Practice; ATTEND General Practice
DX: U07.1 COVID-19 (principal); J12.82 Pneumonia due to coronavirus disease 2019; J96.01 Acute respiratory failure with hypoxia; R07.9 Chest pain, unspecified; R11.2 Nausea with vomiting, unspecified; R42 Dizziness and giddiness; R94.5 Abnormal results of liver function studies; R51.9 Headache, unspecified
CPT/HCPCS: 36415; 36600; 71045; 71270; 80053; 81001; 82375; 82803; 83605; 83735; 83880; 84145; 84484; 85025; 85379; 85610; 87040; 93005; 93041; 94002; 94640; 94760; 94762; 96365; 99284; J0456; J0696; J1650; J2060; J2405; J2920; A9270-GY

== ENCOUNTER 2021-04-18 10:51 | Day surgery (SDC) | payer OTHER ==
--- NOTE | 2021-04-18 09:05 | HP ---
DATE OF SURGERY: 04/18/2021 HISTORY OF PRESENT ILLNESS: The patient is a 40-year-old had some right-sided abdominal aches and pains 15 to 30 minutes after eating and some heartburn. Given her symptoms and high ejection fraction of 30%, I feel she has acute exacerbation of chronic cholecystitis, symptomatic biliary dyskinesia. PAST MEDICAL HISTORY: She had COVID in the past. She had been on Ozempic since then. PAST SURGICAL HISTORY: IUD. section. Tubal ligation. Cysts removed in the past. MEDICATIONS: Ozempic ALLERGIES: NKDA. FAMILY HISTORY: Negative in regards to this problem. SOCIAL HISTORY: No smoking or alcohol abuse. REVIEW OF SYSTEMS: Fourteen systems reviewed. No chest pain or palpitations. Other systems negative or noncontributory as above and per preadmission questionnaire. PHYSICAL EXAMINATION: GENERAL: No acute distress. HEENT: Sclerae nonicteric. NECK: No JVD. CHEST: Clear to auscultation. CVS: Regular rate and rhythm. ABDOMEN: Soft. No peritoneal signs. EXTREMITIES: No significant edema. NEURO: Alert, oriented, moving extremities symmetrically. PSYCH: Appropriate mood and affect. IMPRESSION: Acute exacervation of chronic cholecystitis, symptomatic biliary dyskinesia. I feel the patient will benefit from cholecystectomy. Risks and benefits explained in detail including but not limited to bleeding or infection, risk of trocar injury or hernia, risk of bowel, bladder or blood vessel injury, risk of bile leak, bile duct injury, retained stone or sludge possibly requiring further procedure either open or ERCP, general risk of anesthesia, deep venous thrombosis, pulmonary embolism, pneumonia, perioperative risk of aches, pains, bloating, constipation and/or loose stools possibly even chronic in nature. She understands and agrees to the planned procedure, will proceed with outpatient laparoscopic cholecystectomy possible open.
[~2021-04-18 10:51] MED LIST: Lactated Ringers 1,000 ML IV ONE; Sensorcaine 0.25% 10 ML ONE
[2021-04-18] MEDS ORDERED: Lactated Ringers 1,000 ML IV SCH (11:00)
[2021-04-18] MEDS ORDERED: MEFOXIN 2 GM PREMIX** 2 GM/50 ML ML IV SCH (11:00)
[2021-04-18] MEDS ORDERED: Lactated Ringers 1,000 ML IV ONE (11:04)
[2021-04-18] MEDS ORDERED: MEFOXIN 2 GM PREMIX** 2 GM/50 ML ML IV ONE (11:04)
[2021-04-18] MEDS ORDERED: DIPRIVAN 200 MG/20 ML IV ONE (13:24)
[2021-04-18] MEDS ORDERED: Zemuron 100 MG/10 ML ONE (13:24)
[2021-04-18] MEDS ORDERED: TORAdol 30 mg Injection ONE (13:24)
[2021-04-18] MEDS ORDERED: BRIDION 200MG/2ML IV ONE (13:24)
[2021-04-18] MEDS ORDERED: Zofran 4 MG/2 ML VIAL ONE (13:24)
[2021-04-18] MEDS ORDERED: SUBLIMAZE 100 MCG/2 ML ONE ×2 (13:24→13:48)
[2021-04-18] MEDS ORDERED: Decadron 4 MG INJ ONE (13:24)
[2021-04-18] MEDS ORDERED: Xylocaine-Mpf 2% 5 Ml Vial ONE (13:24)
[2021-04-18] MEDS ORDERED: MORPHINE SULFATE 2 MG INJ ONE (14:28)
[2021-04-18] MEDS ORDERED: Compazine 10 MG/2 ML ONE (14:32)
[2021-04-18 15:29] VITALS: BP 139/96; PULSE 97; O2SAT 98
--- NOTE | 2021-04-19 09:42 | OP ---
SURGERY DATE/TIME: 04/18/2021 1326 PREOPERATIVE DIAGNOSIS: Acute exacerbation of chronic cholecystitis, symptomatic biliary dyskinesia. POSTOPERATIVE DIAGNOSIS: Acute exacerbation of chronic cholecystitis, symptomatic biliary dyskinesia. PROCEDURE: Laparoscopic cholecystectomy. SURGEON: Dr. Michel Martinez. SUGAR TRUCKER: Harry Patricia, Medical Student III. ANESTHESIA: General. ESTIMATED BLOOD LOSS: Minimal. INDICATIONS: As noted above. Risks and benefits explained in detail but not limited to and consent obtained. DESCRIPTION OF PROCEDURE AND FINDINGS: The patient was taken to the operating room. General anesthesia induced. The patient was prepped and draped in the usual sterile fashion. After official time out and no disagreement with planned procedure, a transverse incision made at the infraumbilical area as it looked like she had supraumbilical piercing site. Infraumbilical incision is made. Fascia grasped and pulled upward. Veress needle inserted and tested with saline. Pneumoperitoneum accomplished insufflating opening pressure of 0-15. An 11 mm bladeless port and camera inserted without difficulty followed by two - 5 mm right upper quadrant ports and 5 mm epigastric port. There is no evidence of any intra-abdominal injury secondary to trocar insertion. The patient did have a little bit of a fatty infiltrated liver. Positioning in airplane to the right in reverse Trendelenburg, the gallbladder grasped retracted over the edge of the liver dissecting posterior, lateral to anterior fashion. The patient had an anterior lying artery and node, this is carefully dissected free. Once critical view obtained anteriorly and posteriorly the cystic artery branch isolated directly on the gallbladder clipped and divided thisd allowed access to the immediately posterior cystic duct/infundibular area which was carefully skeletonized until critical view obtained anterior and posteriorly. Once this is accomplished cyst duct clipped x3 and divided in the usual fashion. Gallbladder slowly and carefully dissected free from its dense attachment to liver bed, clipping additional oozing side branches off the cystic artery, cystic vein as necessary. Just prior to releasing from final attachments to the anterior edge of the liver, the liver bed re-inspected. It is irrigated out. Clips noted to be in place cystic duct and cystic artery stumps. No signs of any active bleeding or bile leakage from the liver bed itself. There was a little pinhole leaking from grasper site on the fundus of the gallbladder. The gallbladder is released from final attachments, placed in the provided sac pulled free and passed off. The fascia defect closed with puncture closure device with #1 Vicryl under direct vision of the camera. Liver bed re-inspected. Clips noted to be in place cystic duct and cystic artery stumps. No signs of any active bleeding or bile leakage. It was felt there was no benefit from drain placement. Pneumoperitoneum decompressed. The wound irrigated out. Skin incision closed with 4-0 Vicryl. Steri-Strips and sterile dressing applied. 0.25% Marcaine local injected along the skin incision fascial defect. The patient tolerated the procedure well. Findings discussed with the family out in the waiting area.
== END 2021-04-18 15:40 | disposition home or self-care (01) ==
LOC: SDC 10:51
PROVIDERS: ATTEND Surgery
DX: K81.2 Acute cholecystitis with chronic cholecystitis (principal); K82.8 Other specified diseases of gallbladder
CPT/HCPCS: 84703; J0694; J1100; J1885; J2270; J2405; J2704; J3010